=== PATIENT | female | born 1940 | race Caucasian/White ===

== ENCOUNTER → 2019-05-01 12:46 | Outpatient (CLI) | payer MEDICARE, SELFPAY ==
--- NOTE | 2019-05-01 13:08 | CA_ITS ---
APPROVED REPORT EXAM: Comprehensive 2D, Doppler, and color-flow Echocardiogram Shipping Point Inspector: Caterina Borrero CRT Ht: 5 ft 4 in Wt: 160lbs BSA: 1.78 BP: 110/70 mmHg Indications: Shortness of Breath, Hypertension/HDD, EDEMA, SMOKER 2D Dimensions LVOT 1.74 cm (M/F) 1.5-2.5 M-Mode Dimensions RVDd 2.00 cm (0.9-2.6) LVDd 3.85 cm (3.5-5.7) LVDs 3.10 cm (3.5-5.7) IVSd 1.56 cm (0.6-1.1) PWd 0.50 cm (0.6-1.1) EF (Teich) 40.70% FS 19.50% EDV (Teich) 63.90 mL ESV (Teich) 37.90 mL LV Diastology E/A Ratio 0.56 Mitral Valve MV A Velocity 126.00 (40-130 cm/s) Left Ventricle Left atrium is mildly enlarged, left ventricle is normal size, mild concentric left ventricular hypertrophy, visually estimated ejection fraction 55% with no regional wall motion abnormality. Grade 1 diastolic dysfunction seen with tissue Doppler evidence of raise left atrial pressure. Right Ventricle Right atrium and right ventricular normal size and contractility. Aortic Valve Aortic valve is minimally thickened and calcified, leaflet continue to display good mobility, there is no aortic stenosis, there is trace aortic insufficiency. Mitral Valve Mitral valve is grossly normal, there is mild mitral regurgitation. Tricuspid Valve Tricuspid valve is grossly normal, there is mild tricuspid regurgitation. Pulmonic Valve Pulmonic valve is poorly visualized. Great Vessels Aortic root is normal size. Pericardium No significant pericardial effusion noted. Conclusion 1. Mildly enlarged left atrium, normal left ventricular size, mild concentric left ventricular hypertrophy, visually estimated ejection fraction 55% with no regional wall motion abnormality, grade 1 diastolic dysfunction seen with tissue Doppler evidence of raise left atrial pressure. 2. Trace aortic, mild mitral and tricuspid regurgitation. 3. No significant pericardial effusion noted. Electronically signed by : Michel Bishop, 05/02/2019 06:40:31
== END ==
PROVIDERS: PCP Family Medicine; Visit Provider Family Medicine
DX: R06.02 Shortness of breath (principal); R60.0 Localized edema; J43.9 Emphysema, unspecified; I10 Essential (primary) hypertension
CPT/HCPCS: 93306

== ENCOUNTER 2022-01-14 14:54 | Emergency (ER) | payer MEDICARE, SELFPAY ==
[2022-01-14 15:29] VITALS: BP 169/70; PULSE 99; RESP 18; TEMP 36.8; O2SAT 94; BMI 27.4
--- NOTE | 2022-01-14 15:51 | CT_ITS ---
FINAL REPORT CLINICAL HISTORY: back pain, R leg radicular pain FINDINGS: Axial imaging of the lumbar spine was obtained without contrast. Sagittal and coronal reformatted images were also obtained and reviewed.This study was performed with techniques to keep radiation doses as low as reasonably achievable (ALARA). Individualized dose reduction techniques using automated exposure control or adjustment of mA and/or kV according to the patient's size were employed. There is no fracture. There is a left lateral subluxation of L2 in relation to L3 measuring 4 mm. There is multilevel degenerative disc disease with severe disc space narrowing at L2-3 and L5-S1. There is no evidence of significant central canal stenosis. L1-2: There is an annular disc bulge with facet arthropathy and vertebral osteophytes. There is a right foraminal disc protrusion with moderate right mild left neural foraminal narrowing. L2-3: There is an annular disc bulge with facet arthropathy and vertebral osteophytes. There is moderate right and severe left neural foraminal narrowing. There is moderate central canal stenosis with an AP diameter of the thecal sac of 5 mm. L3-4: There is an annular disc bulge with facet arthropathy and vertebral osteophytes. There is moderate bilateral neural foraminal narrowing. There is moderate central canal stenosis with an AP diameter of the thecal sac of 5 mm. L4-5: There is an annular disc bulge with facet arthropathy. There is moderate bilateral neural foraminal narrowing. L5-S1: There is an annular disc bulge with facet arthropathy and vertebral osteophytes. There is severe right and moderate left neural foraminal narrowing. IMPRESSION: No acute bony abnormality. Multilevel degenerative change with severe disc space narrowing at L2-3 and L5-S1. Moderate central canal stenosis at L2-3 and L3-4. 4 mm of left lateral subluxation of L2 in relation to L3. Reviewed, Interpreted and Dictated by Kevin Smith III, MD Transcribed by Zeynep Orellana Authenticated and [facility]
--- NOTE | 2022-01-14 15:52 | HMH.EDGENADL ---
Discharge Plan Disposition Patient Disposition: Home, Self-Care Condition: Good Prescriptions Prescriptions: New prednisone 20 mg tablet 20 mg PO BID Qty: 10 0RF hydrocodone-acetaminophen 5-325 mg tablet 1 tab PO Q6H PRN (Reason: pain) Qty: 7 0RF Referrals Follow up/Referrals: Isaias Prasad MD [Referring] - See instructions Activity Restrictions/Add. Instructions Additional Instructions/Restrictions: Prednisone as prescribed. [place] as needed for pain. It would be best to take this just at night to help with sleep and take plain Tylenol during the day to avoid drowsiness, dizziness, and risk of falls. Follow-up with your primary care provider, call to make appointment. Additional instructions for BACK PAIN: See your physician as soon as possible for further evaluation. Return immediately if back pain becomes intolerable, or if fever, numbness or weakness of your legs, loss of control of your bowels or bladder. Additional instructions for CONTROLLED SUBSTANCES: You have been prescribed a medication that is a controlled substance. Controlled substances include pain medications known as opiates and sedative nerve medications known as benzodiazepines. Tramadol, fioricet, and gabapentin are also controlled substances. Some common opiates include: Codeine (such as Tylenol #3) Hydrocodone (Vicodin, Lortab, Lorcet, [place]) Oxycodone (Percocet, Percodan, Oxycodone, Oxy IR) Some common benzodiazepines include: Diazepam (Valium) Lorazepam (Ativan) Alprazolam (Xanax) Clonazepam (Klonopin) Oxazepam (Serax) All of these controlled substances are highly addictive and frequently abused. Misuse can and frequently does lead to addiction as well as overdose and . Medication should be stored in a locked cabinet or other secure storage unit. Do not store the medication in a motor vehicle. Short term supplies, 3 days or less, are prescribed because of the highly addictive nature of the medication. Any of the controlled substance medication NOT taken should be disposed of properly and NOT SAVED. The recommended method of disposing of unused medications is: Place the medicines in a sealable plastic bag. If the medicine is a solid, crush it or add water to dissolve it. Add something undesirable (cat litter, coffee grounds, etc.) Dispose of sealed bag in household trash Do not flush or pour unused medicines down a sink or drain. Controlled substances should not be shared, given away or sold. Because of the addictive nature and frequent abuse, these medications are sometimes stolen. These medications should be kept in a safe place where they cannot be stolen. Do not keep them in your car or purse. Lost or stolen prescriptions for controlled substances WILL NOT BE REFILLED in this emergency department, regardless of whether a police report was filed. Clinical Impressions Clinical Impression: Acute back pain with sciatica, DDD (degenerative disc disease), lumbar, Spinal stenosis Instructions Patient Instructions: DI for Back Pain With Sciatica Discharge ED Provider: Hilton French General Adult HPI General Chief complaint: Back Pain/Injury Stated complaint: Severe back pain, no accident Time Seen by Provider: 01/14/22 15:42 Mode of Arrival: Wheelchair Source of Information: Patient Limitations: No Limitations Description of Symptoms (Recalled from ER Triage Doc. by RN): Patient reports severe lower back pain, right hip pain that radiates all the way dwon her leg into her ankle. Patient reports she has had the pain for a while but it has now become unbearable. History of Present Illness HPI narrative: History obtained from patient and her daughter. Patient complains of pain in her right lumbar area that radiates down her right leg all the way to the ankle. Is causing her difficulty in ambulating. She has had back pain chronically, but over the past week it has gotten worse and become
[2022-01-14 18:13] VITALS: BP 153/62; PULSE 89; RESP 18; TEMP 36.8; O2SAT 95
== END 2022-01-14 18:00 | disposition home or self-care (01) ==
PROVIDERS: Emergency Provider Emergency Medicine; PCP Nurse Practitioner Family
DX: M54.40 Lumbago with sciatica, unspecified side (principal); M51.36 Other intervertebral disc degeneration, lumbar region; Z88.0 Allergy status to penicillin; Z88.2 Allergy status to sulfonamides
CPT/HCPCS: 72131; 96372; 99284; J2405

== ENCOUNTER → 2022-06-09 12:37 | Outpatient (POV) | payer MEDICARE, SELFPAY ==
--- NOTE | 2022-06-09 13:04 | EXP.PAIN.OV ---
HPI Data of Consult Patient: new to practice Consult date: 06/09/22 Requesting Physician: Cyndy Natarajan APRN Primary Care Provider: Isaias Prasad MD Consult Narrative Reason for consult: Low back pain History of present illness: Ms. Garcia is a 82 year old female who presents today as a new patient. She is a referral from Dr. Prasad's office. Today she rates her pain a 10 out of 10. Patient states her pain is all in her low back, legs and hips. Patient states this is been going on for years however it has been more severe the last 6 to 8 months and progressively worsened over time. Patient denies any specific trauma or injury that initially led to her symptoms. She does describe this as a throbbing sensation with occasional sharp pains with certain activities such as going up the stairs or getting in and out of the vehicle. She states the pain is so severe that it makes her sick to her stomach. She does also state that it affects her ability to sleep at night due to her pain. She does state it interferes with her ability to perform activities of daily living such as cooking or cleaning or even ambulation. She does use a cane as an assistive device. She state her pain does go into both her legs however it does vary based on what she is doing. Patient has tried [id number] Tylenol and ibuprofen. She states she does take more Advil however she has a history of Crohn's disease and has to be very cautious with taking NSAIDs. Patient is also tried alternating between heat and ice and Biofreeze however this only provides temporary relief. Patient denies any history of recent physical therapy, back surgery or injections. Patient has been prescribed Thorofare 5 mg in the past by her primary care doctor however she does not currently take this medication. She states she has been given steroids in the past however she did not notice significant relief. Her Ortega is [phone]. Its been reviewed and appropriate. CC: Cyndy Natarajan APRN [facility] Disclaimer: The information contained in this section may have been updated after the patient was seen, as this information can be updated by other users. Social History Smoking Status: Current every day smoker alcohol intake: never current occupational status: retired Travel in the last 8 weeks: None Review of Systems Review of Systems Review of systems:: pertinent systems reviewed and negative unless documented below Review of systems (narrative): Review of Systems: General: No recent weight changes, no fever, no sleep disturbances Respiratory: No cough, no shortness of air, no recurring pulmonary infections Cardiovascular/peripheral vascular: No chest pain, no palpitations, no edema, no shortness of breath Gastrointestinal: No new onset incontinence, normal bowel movements reported Genitourinary: No new onset incontinence Musculoskeletal: Low back pain right leg pain bilateral hip pain Psychiatric: [Normal mood/affect] Neurological: [Denies weakness in extremities], [denies balance issues] Meds Home Medications and Allergies Home Medications Medication Instructions Recorded Confirmed Type hydrocodone 5 mg-acetaminophen 325 1 tab PO Q6H PRN pain #7 tabs 01/14/22 Rx mg tablet prednisone 20 mg tablet 20 mg PO BID #10 tabs 01/14/22 Rx New Prescriptions to Start Prescriptions: Allergies Allergy/AdvReac Type Severity Reaction Status Date / Time Penicillins AdvReac Verified 01/14/22 15:33 Sulfa (Sulfonamide AdvReac Verified 01/14/22 15:33 Antibiotics) Objective Narrative: Physical Exam: General: Alert and oriented x3, no acute distress, pleasant and cooperative Lungs: Respirations even and unlabored, symmetrical chest expansion Eyes: PERRL Musculoskeletal: Flexion and extension of lumbar [spine] somewhat guarded secondary to pain, [antalgic gait noted] extreme point tenderness along right SI and bilateral greater trochanteric bursa's/p
[2022-06-09 13:29] VITALS: BP 162/83; PULSE 113; RESP 20; O2SAT 97; BMI 26.4
== END | disposition home or self-care (01) ==
PROVIDERS: PCP Family Medicine; Visit Provider Nurse Practitioner Family
DX: M51.16 Intervertebral disc disorders with radiculopathy, lumbar region (principal); M47.26 Other spondylosis with radiculopathy, lumbar region; M48.00 Spinal stenosis, site unspecified
CPT/HCPCS: 99202; G0463

== ENCOUNTER 2022-06-22 12:35 | Day surgery (SDC) | payer MEDICARE, SELFPAY ==
[2022-06-22 13:01] VITALS: BP 149/77; PULSE 113; RESP 18; TEMP 36.7; O2SAT 93; BMI 27.4
--- NOTE | 2022-06-22 13:03 | P.PCN_ITS ---
Procedure Date: 06/22/22 Time: 13:00 Anesthesiologist:: Peyman Vizcarra CRNA Complications:: None Pre-procedure Diagnosis:: Bilateral sacroiliitis Post-procedure Diagnosis:: Same Indications for Procedure:: Very pleasant 82-year-old female comes our clinic today for bilateral sacroiliac joint injection. She has extreme point tenderness over the bilateral SI joints. Procedure Details:: Procedure: Bilateral sacroiliac joint injections under fluoroscopy Informed consent was obtained and the risks and benefits of the procedure were explained to the patient.~ The patient was taken to the procedure room and noninvasive monitors were placed including a noninvasive blood pressure cuff and pulse oximeter.~ The patient was placed prone on the procedure table. Both hips were cleansed using Betadine as a cleansing solution. C-arm fluoroscopy was used to view the right sacroiliac joint.~ The skin and subcutaneous tissues were anesthetized using lidocaine 1.5% and a 25-gauge needle.~ After this, a 22-gauge spinal needle was inserted under fluoroscopic guidance into the inferior aspect of the right sacroiliac joint.~ Omnipaque dye was injected and good spread was seen throughout the joint.~ After this, approximately 5 mL of bupivacaine, 0.25% and Depo-Medrol, 40 mg was incrementally injected into the right sacroiliac joint. We then moved to the left sacroiliac joint.~ The skin and subcutaneous tissues were anesthetized using lidocaine 1.5% and a 25-gauge needle.~ After this, a 22- gauge spinal needle was inserted under fluoroscopic guidance into the inferior aspect of the left sacroiliac joint.~ Omnipaque dye was injected and good spread was seen throughout the joint. After this, approximately 5 mL of bupivacaine, 0.25% and Depo-Medrol, 40 mg was incrementally injected into the left sacroiliac joint.~ The patient tolerated the procedure well with no complications. The patient was observed in the Pain Clinic and then was discharged home neurologically intact. Plan and Disposition:: Patient was discharged without incident.
[2022-06-22 13:08] VITALS: BP 150/55; PULSE 109; RESP 18; O2SAT 93
== END 2022-06-22 13:08 | disposition home or self-care (01) ==
PROVIDERS: PCP Family Medicine; Visit Provider Nurse Anesthetist, Certified Registered
DX: M46.1 Sacroiliitis, not elsewhere classified (principal)
CPT/HCPCS: 27096; G0260; J1040

== ENCOUNTER 2022-06-29 12:14 | Day surgery (SDC) | payer MEDICARE, SELFPAY ==
[2022-06-29 12:56] VITALS: BP 148/76; PULSE 106; RESP 18; TEMP 36.2; O2SAT 97; BMI 27.4
--- NOTE | 2022-06-29 12:59 | P.PCN_ITS ---
Procedure Date: 06/29/22 Time: 13:00 Anesthesiologist:: Peyman Vizcarra CRNA Complications:: None Pre-procedure Diagnosis:: Bilateral greater trochanteric bursitis Post-procedure Diagnosis:: Same Indications for Procedure:: Patient is a very pleasant 82-year-old female comes our clinic today for bilateral greater trochanteric bursa injections. She has extreme point tenderness over the bilateral trochanteric bursa areas. She complains of lateral hip pain bilaterally. Procedure Details:: Procedure: Bilateral trochanteric bursa joint injections under fluoroscopy Informed consent was obtained and the risks and benefits of the procedure were explained to the patient.~ The patient was taken to the procedure room and noninvasive monitors were placed including a noninvasive blood pressure cuff and pulse oximeter.~ The patient was placed prone on the procedure table. Both hips were cleansed using Betadine as a cleansing solution. C-arm fluoroscopy was used to view the right trochanteric bursa joint.~ The skin and subcutaneous tissues were anesthetized using lidocaine 1.5% and a 25-gauge needle.~ After this, a 22- gauge spinal needle was inserted under fluoroscopic guidance into the inferior aspect of the right trochanteric bursa.~ Omnipaque dye was injected and good spread was seen throughout the joint.~ After this, approximately 5 mL of bupivacaine, 0.25% and Depo-Medrol, 40 mg was incrementally injected into the right sacroiliac joint. We then moved to the left trochanteric bursa joint.~ The skin and subcutaneous tissues were anesthetized using lidocaine 1.5% and a 25-gauge needle.~ After this, a 22-gauge spinal needle was inserted under fluoroscopic guidance into the inferior aspect of the left trochanteric bursa joint.~ Omnipaque dye was injected and good spread was seen throughout the joint. After this, approximate ly 5 mL of bupivacaine, 0.25% and Depo-Medrol, 40 mg was incrementally injected into the left sacroiliac joint.~ The patient tolerated the procedure well with no complications. The patient was observed in the Pain Clinic and then was discharged home neurologically intact. Plan and Disposition:: Patient was discharged without incident.
[2022-06-29 13:02] VITALS: BP 159/69; PULSE 104; RESP 18; O2SAT 97
[2022-06-29 13:03] VITALS: BP 159/69; PULSE 104; RESP 18; O2SAT 97
[2022-06-29 13:05] VITALS: BP 135/73; PULSE 105; RESP 18; O2SAT 97
== END 2022-06-29 13:05 | disposition home or self-care (01) ==
PROVIDERS: PCP Family Medicine; Visit Provider Nurse Anesthetist, Certified Registered
DX: M70.61 Trochanteric bursitis, right hip (principal); M70.62 Trochanteric bursitis, left hip
CPT/HCPCS: 20610; 77002; J1040

== ENCOUNTER 2022-07-14 07:10 | Observation (INO) | payer MEDICARE, SELFPAY ==
[2022-07-14] VITALS (12 sets, daily range): BP systolic 110–145; BP diastolic 54–64; PULSE 66–87; RESP 16–19; TEMP 36.6–37; O2SAT 88–98; BMI 32.7; BMI 28.0
--- NOTE | 2022-07-14 07:15 | XR_ITS ---
FINAL REPORT CLINICAL HISTORY: soa COMPARISON: 12/03/2016 FINDINGS: SINGLE-VIEW CHEST The heart size is normal. The mediastinum is normal. There are chronic changes at the bases. The lungs are otherwise clear. There is no pneumothorax. IMPRESSION: No acute cardiopulmonary process. Reviewed, Interpreted and Dictated by Joshua Swan MD Transcribed by Myah Koo Authenticated and [facility]
--- NOTE | 2022-07-14 07:15 | XR_ITS ---
FINAL REPORT CLINICAL HISTORY: fall FINDINGS: Right femur Two views were obtained. There is no acute fracture or dislocation. The joint spaces appear normal. No soft tissue abnormality is identified. IMPRESSION: No acute process. Reviewed, Interpreted and Dictated by Joshua Swan MD Transcribed by Myah Koo Authenticated and [facility]
--- NOTE | 2022-07-14 07:15 | CT_ITS ---
FINAL REPORT TECHNIQUE: Axial images of the pelvis was performed by computed tomography. Sagittal and coronal reformatted images were obtained and reviewed. This study was performed with techniques to keep radiation doses as low as reasonably achievable (ALARA). Individualized dose reduction techniques using automated exposure control or adjustment of mA and/or kV according to the patient's size were employed. CLINICAL HISTORY: fall, R posterior pelvis pain FINDINGS: There is dense vascular calcification of the abdominal aorta and common iliac arteries. There are advanced changes of degenerative disc disease at L5-S1 with mild spinal and bilateral neural foraminal narrowing. There is inflammation and edema along the anterior and lateral inferior pelvic wall best seen on axial images 58-72 of series 4. Findings are probably related to a hematoma. There are fractures involving the lateral aspect of the right superior pubic ramus and mid right inferior pubic ramus. There is also comminuted fracture of the left symphysis pubis. IMPRESSION: Comminuted fracture of the left symphysis pubis with moderate stranding along the anterior and lateral inferior pelvic wall, probably related to a hematoma. Fractures of the right superior and inferior pubic rami. Reviewed, Interpreted and Dictated by Joshua Swan MD Transcribed by Myah Koo Authenticated and . [facility]
--- NOTE | 2022-07-14 07:15 | XR_ITS ---
FINAL REPORT CLINICAL HISTORY: fall FINDINGS: Right hip Three views were obtained. There are nondisplaced fractures of the right superior and inferior pubic rami. The femoral head demonstrates a normal smooth contour. The joint spaces appear normal. No soft tissue abnormality is identified. IMPRESSION: Nondisplaced fractures of the superior and inferior pubic rami. Reviewed, Interpreted and Dictated by Joshua Swan MD Transcribed by Myah Koo Authenticated and [facility]
--- NOTE | 2022-07-14 07:20 | HMH.EDGENADL ---
Discharge Plan Disposition Patient Disposition: Still a Patient Prescriptions Prescriptions: No Action losartan-hydrochlorothiazide 100-25 mg tablet 1 tab PO DAILY piroxicam 10 mg capsule 10 mg PO DAILY tizanidine [Zanaflex] 4 mg tablet 4 mg PO HS Referrals Follow up/Referrals: Isaias Prasad MD [Primary Care Provider] - See instructions Clinical Impressions Clinical Impression: Closed fracture of pubic ramus Discharge ED Provider: Glynn Cheek General Adult HPI <Glynn Cheek MD - Last Filed: 07/14/22 07:42> General Chief complaint: Fall Stated complaint: Fall/Right hip pain Time Seen by Provider: 07/14/22 07:20 Mode of Arrival: EMS Source of Information: Patient and EMS Limitations: No Limitations Description of Symptoms (Recalled from ER Triage Doc. by RN): 82 yo female presents after falling last night at approximately 2100. Fall was unwitnessed and she denies LOC. Pt denies anticoag/antiplatelets. Patient with right side hip pain. According to EMS family reports immediately helping her up and then her pain became too much. History of Present Illness HPI narrative: Patient is a 82-year-old female with past medical history of hypertension, Crohn's, degenerative disc disease, sciatica who presents emergency department for evaluation of traumatic injuries sustained in a fall. Patient fell at approximately 2100 last night on her right side, no LOC, did not strike her head or neck. She originally complained of hip pain and was helped up to the couch by her son however due to worsening throughout the night she presents here for continued evaluation. In route patient received 25 mcg of fentanyl and 4 mg of Zofran. Placed on 2 L nasal cannula due to saturation in the mid 80s. Patient states she has had a cough and upper respiratory congestion recently. Does not have a history of COPD or take inhalers at home. No other acute complaints at this time. Denies blood thinners. Related Data Home Medications Medication Instructions Recorded Confirmed losartan 100 1 tab PO DAILY BLOOD PRESSURE 06/09/22 06/29/22 mg-hydrochlorothiazide 25 mg tablet piroxicam 10 mg capsule 10 mg PO DAILY Pain 06/09/22 06/29/22 tizanidine 4 mg tablet (Zanaflex) 4 mg PO HS muscle spasms 06/22/22 06/29/22 Allergies Allergy/AdvReac Type Severity Reaction Status Date / Time Penicillins AdvReac Verified 06/29/22 12:57 Sulfa (Sulfonamide AdvReac Verified 06/29/22 12:57 Antibiotics) [facility] <Glynn Cheek MD - Last Filed: 07/14/22 07:42> [facility] Disclaimer: The information contained in this section may have been updated after the patient was seen, as this information can be updated by other users. Medical History (Updated 07/14/22 @ 09:16 by Nickolas Acevedo MD) Degenerative disc disease HTN (hypertension) Family History Other No significant family history Social History Smoking Status: Unknown if ever smoked alcohol intake: never current occupational status: retired Travel in the last 8 weeks: None <Glynn Cheek MD - Last Filed: 07/14/22 07:42> ROS Obtained: Yes Systems reviewed as appropriate & no additional complaints except as documented Physical Exam <Glynn Cheek MD - Last Filed: 07/14/22 07:42> General General appearance: alert and in no apparent distress Head Head exam: atraumatic and normocephalic Eye Eye exam: Present PERRL and EOMI ENT ENT exam: Present mucous membranes moist Neck Neck exam: Present normal inspection; Absent full ROM or tenderness Chest Chest inspection: Present normal inspection and symmetric chest wall rise Respiratory Respiratory exam: Present wheezes and prolonged expiratory phase; Absent respiratory distress Cardiovascular Cardiovascular exam: Present regular rate and normal rhythm Abdominal Exam Abdominal exam
--- NOTE | 2022-07-14 07:21 | PC.NURSE ---
Respiratory aware of DUO-NEB order
--- NOTE | 2022-07-14 07:34 | PC.NURSE ---
Family at BS
--- NOTE | 2022-07-14 07:38 | ECG_ITS ---
APPROVED REPORT Exam: Resting ECG HR:92 bpm ECG Measurements Heart Rate 92 AXES IN 161 P 82 QRSd 81 QRS 73 QT 374 T 70 QTc 423 Conclusion SINUS RHYTHM WITH FREQUENT ECTOPIC PREMATURE COMPLEXES ABNORMAL RHYTHM ECG UNCONFIRMED REPORT Electronically signed by : Isaias Akins MD 07/14/2022 21:20:01
[2022-07-14 07:40] LABS: Basophils # 0.1 K/mm3 (0-0.2); Basophils % 0.5 % (0.1-2.0); Eosinophils # 0.1 K/mm3 (0.0-0.4); Eosinophils % 1.1 % (0.1-12.0); Hematocrit 47.5 % (37.0-47.0); Hemoglobin 15.5 g/dL (12.2-16.2); Lymphocytes # 1.1 K/mm3 (0.7-4.5); Lymphocytes % 8.5 % (10-50); Mean Corpuscular HGB Conc 32.6 g/dL (31.8-35.4); Mean Corpuscular Volume 95.1 fl (81-99); Mean Platelet Volume 8.6 fl (7.4-10.4); Monocytes # 0.6 K/mm3 (0.1-1.0); Monocytes % 4.8 % (1.7-9.3); Neutrophils # 10.8 K/mm3 (1.8-7.8); Neutrophils % 85.1 % (37.0-80.0); Platelet Count 155 K/mm3 (142-424); Red Blood Count 4.99 M/mm3 (4.20-5.40); Red Cell Distribution Width 13.5 % (11.5-17.5); White Blood Count 12.7 K/mm3 (4.8-10.8)
[2022-07-14 07:44] LABS: MANUAL DIFFERENTIAL MANUAL DIFFERENTIAL (MANUAL DIFF)
[2022-07-14 07:45] LABS: Chloride 82 mmol/L (98-107); Potassium 3.3 mmoL/L (3.5-5.1); Sodium 129 mmol/L (136-145)
[2022-07-14 07:48] LABS: Blood Urea Nitrogen 25 mg/dl (7-17); Creatinine Clearance Estimated 51 mL/min (50-200); Estimated Glomerular Filt Rate 48 ml/min (>60); GFR (African American) 58 ML/MIN (>60); Lymphocytes % 13 % (10-50); Monocytes % 5 % (2-9); Neutrophils % 82 % (42-76); Platelet Estimate Slight Decrease; RBC Morphology Normal; Total Cells Counted 100
[2022-07-14 07:49] LABS: Anion Gap 14.3 mEq/L (5-15); Calcium 8.6 mg/dl (8.4-10.2); Carbon Dioxide 36 mmol/L (22.0-30.0); Glucose 142 mg/dl (74-100)
[2022-07-14 07:56] LABS: Coronavirus 19, PCR Not Detected (NotDetected); Influenza A, PCR Not Detected (NotDetected); Influenza B, PCR Not Detected (NotDetected)
--- NOTE | 2022-07-14 08:00 | PC.NURSE ---
[place] at bedside
--- NOTE | 2022-07-14 09:08 | PC.NURSE ---
Dr. Acevedo speaking with Dr. Natarajan, Orthopaedics.
--- NOTE | 2022-07-14 09:50 | PC.NURSE ---
call to care management about bed.
--- NOTE | 2022-07-14 10:06 | HMH.PHAINT1 ---
Pharmacy Intervention Comments: MEDICATION RECONCILIATION COMPLETED ON PATIENT USING EXTERNAL FILL HISTORY FROM PHARMACY. -HALEY LIM, KATD
--- NOTE | 2022-07-14 10:09 | PC.NURSE ---
Rounded on patient; family reports she seems to be very uncomfortable at this time. reported to Dr. Acevedo that patient is requesting something for pain. EMILIE Yates aware that order was put in
--- NOTE | 2022-07-14 10:15 | PC.NURSE ---
report called to second floor. will administer pain medication then transport pts to second floor.
--- NOTE | 2022-07-14 10:32 | PC.NURSE ---
arrived to room on stretcher from ED
--- NOTE | 2022-07-14 11:48 | SW/DCPLANNER ---
Addendum entered by Ana Laura Orozco 07/16/22 08:49: This patient has been approved via insurance for [facility] SNF level of care today. Addendum entered by Ana Laura Orozco 07/15/22 07:35: This patient has been accepted to [facility] pending precert. I have updated patient and family. Cyndy martinez/ [facility] is aware that patient is medically stable for discharge. Original Note: Patient currently resides at home alone. PT/OT will evaluate patient today. Patient/family has stated that if SNF level of care is needed at time of discharge they prefer [facility]. Per MD patient is medically stable for discharge once PT/OT is completed and placement is established.
--- NOTE | 2022-07-14 12:09 | EXP.HP ---
History of Present Illness *Admission Date: 07/14/22 *Reason for visit:: Fall *History of present illness: Ms. Alvares is a pleasant 82-year-old female with history of tobacco dependence, chronic back pain, spinal stenosis, and hypertension. She presented to the ER today after falling at home. States she was at home and fell onto her right side. Has had pain in her pelvis since. She denies any chest pain, nausea, vomiting, confusion, hitting her head. Work-up in the ER with labs and imaging. She was found to have significant tenderness over posterior hemipelvis. CT of the pelvis and plain films show concern for pubic ramus fracture. Orthopedics was consulted, recommended nonoperative management. Patient is unable to ambulate in the ER. Medicine consulted for admission, PT/OT eval, and possible placement. On arrival to the floor. Patient is stable on 2 L nasal cannula oxygen (does not wear oxygen at home). States her pelvis hurts when she moves but as long as she still is okay. Has significant family with her who helps supplement history. Patient lives by herself, strong concern about her safety going home. Otherwise at baseline level of health. Has seen pain management previously for back injections, temporary benefit but no long-term improvement. [facility] Disclaimer: The information contained in this section may have been updated after the patient was seen, as this information can be updated by other users. Medical History (Updated 07/14/22 @ 16:59 by Isauro Maier MD) Degenerative disc disease HTN (hypertension) Family History No significant family history Social History Smoking Status: Unknown if ever smoked alcohol intake: never current occupational status: retired Travel in the last 8 weeks: None Review of Systems Review of Systems Review of systems (narrative): 14 point review of systems performed, pertinent positives and negatives as per HPI Meds Home Medications and Allergies Home Medications Medication Instructions Recorded Confirmed Type losartan 100 1 tab PO DAILY Hypertension 06/09/22 07/14/22 History mg-hydrochlorothiazide 25 mg tablet piroxicam 10 mg capsule 10 mg PO DAILY Pain 06/09/22 07/14/22 History tizanidine 4 mg tablet (Zanaflex) 4 mg PO HS muscle spasms 06/22/22 07/14/22 History New Prescriptions to Start Prescriptions: Allergies Allergy/AdvReac Type Severity Reaction Status Date / Time Penicillins AdvReac Verified 06/29/22 12:57 Sulfa (Sulfonamide AdvReac Verified 06/29/22 12:57 Antibiotics) Exam Data for Last 24 hours Vital signs and Labs for Last 24 Hours: Temp Pulse Resp BP Pulse Ox 97.9 F 84 16 120/59 L 88 L 07/14/22 11:07/14/22 11:07/14/22 11:07/14/22 11:07/14/22 10:41 Laboratory Results - last 24 hr 07/14/22 07:28: WBC 12.7 H, RBC 4.99, Hgb 15.5, Hct 47.5 H, MCV 95.1, MCH 31.0, MCHC 32.6, RDW 13.5, Plt Count 155, MPV 8.6, Neut % (Auto) 85.1 H, Lymph % (Auto) 8.5 L, [place] % (Auto) 4.8, Eos % (Auto) 1.1, Baso % (Auto) 0.5, Neut # (Auto) 10.8 H, Lymph # (Auto) 1.1, [place] # (Auto) 0.6, Eos # (Auto) 0.1, Baso # (Auto) 0.1, Total Counted 100, Neutrophils % (Manual) 82 H, Lymphocytes % (Manual) 13, Monocytes % (Manual) 5, Platelet Estimate Slight decrease, RBC Morphology Normal 07/14/22 07:28: Sodium 129 L, Potassium 3.3 L, Chloride 82 L, Carbon Dioxide 36 H, Anion Gap 14.3, BUN 25 H, Creatinine 1.10 H, Estimated Creat Clear 51, Estimated GFR 48 L, Est GFR ( Amer) 58 L, Glucose 142 H, Calcium 8.6 07/14/22 07:40: SARS-CoV-2 (PCR) Not detected, Influenza A Untype (PCR) Not detected, Influenza Type B (PCR) Not detected I & O for Last 24 hours: Intake & Output 07/11/22 07/12/22 07/13/22 07/14/22 23:59 23:59 23:59 23:59 Output Total 0 / 0 Balance 0 / 0 Weight 74.191 kg Constitutional Constitutional: no
--- NOTE | 2022-07-14 13:12 | EXP.ORTH.CON ---
History of Present Illness *Admission Date: 07/14/22 *Reason for visit:: Status post fall *History of present illness: Patient is a 82-year-old female with past medical history of hypertension, Crohn's, degenerative disc disease, sciatica who presents emergency department for evaluation of traumatic injuries sustained in a fall. Patient fell at approximately 2100 last night on her right side, no LOC, did not strike her head or neck. She originally complained of hip pain and was helped up to the couch by her son however due to worsening throughout the night she presents here for continued evaluation. [facility] Disclaimer: The information contained in this section may have been updated after the patient was seen, as this information can be updated by other users. Medical History Degenerative disc disease HTN (hypertension) Family History Other No significant family history Social History Smoking Status: Unknown if ever smoked alcohol intake: never current occupational status: retired Travel in the last 8 weeks: None Review of Systems Constitutional Constitutional: Reports system reviewed and no additional complaints, except as documented *Cardiovascular Cardiovascular: Denies chest pain with activity and Denies dyspnea on exertion *Respiratory Respiratory: Denies dyspnea on exertion *Genitourinary Genitourinary: Reports system reviewed and no additional complaints, except as documented *Musculoskeletal Musculoskeletal: Reports arthralgias *Neurologic Neurologic: Reports system reviewed and no additional complaints, except as documented Meds Home Medications and Allergies Home Medications Medication Instructions Recorded Confirmed Type losartan 100 1 tab PO DAILY Hypertension 06/09/22 07/14/22 History mg-hydrochlorothiazide 25 mg tablet piroxicam 10 mg capsule 10 mg PO DAILY Pain 06/09/22 07/14/22 History tizanidine 4 mg tablet (Zanaflex) 4 mg PO HS muscle spasms 06/22/22 07/14/22 History New Prescriptions to Start Prescriptions: Allergies Allergy/AdvReac Type Severity Reaction Status Date / Time Penicillins AdvReac Verified 06/29/22 12:57 Sulfa (Sulfonamide AdvReac Verified 06/29/22 12:57 Antibiotics) Ortho Exam (Inpt) Vital signs and Labs for Last 24 Hours: Temp Pulse Resp BP Pulse Ox 97.9 F 84 16 120/59 L 88 L 07/14/22 11:23 07/14/22 11:23 07/14/22 11:07/14/22 11:07/14/22 10:41 Laboratory Results - last 24 hr 07/14/22 07:28: WBC 12.7 H, RBC 4.99, Hgb 15.5, Hct 47.5 H, MCV 95.1, MCH 31.0, MCHC 32.6, RDW 13.5, Plt Count 155, MPV 8.6, Neut % (Auto) 85.1 H, Lymph % (Auto) 8.5 L, [place] % (Auto) 4.8, Eos % (Auto) 1.1, Baso % (Auto) 0.5, Neut # (Auto) 10.8 H, Lymph # (Auto) 1.1, [place] # (Auto) 0.6, Eos # (Auto) 0.1, Baso # (Auto) 0.1, Total Counted 100, Neutrophils % (Manual) 82 H, Lymphocytes % (Manual) 13, Monocytes % (Manual) 5, Platelet Estimate Slight decrease, RBC Morphology Normal 07/14/22 07:28: Sodium 129 L, Potassium 3.3 L, Chloride 82 L, Carbon Dioxide 36 H, Anion Gap 14.3, BUN 25 H, Creatinine 1.10 H, Estimated Creat Clear 51, Estimated GFR 48 L, Est GFR ( Amer) 58 L, Glucose 142 H, Calcium 8.6 07/14/22 07:40: SARS-CoV-2 (PCR) Not detected, Influenza A Untype (PCR) Not detected, Influenza Type B (PCR) Not detected I & O for Labs for Last 24 Hours: Intake & Output 07/11/22 07/12/22 07/13/22 07/14/22 23:59 23:59 23:59 23:59 Output Total 0 / 0 Balance 0 / 0 Weight 163 lb 9 oz Findings:: No groin pain with internal/external rotation of bilateral legs. Subjectively tender in the groin and pelvic area with movement. Comment:: I reviewed pelvis CT and agree with radiology findings as below Comminuted fracture of the left symphysis pubis with moderate stranding along the anter
--- NOTE | 2022-07-14 14:48 | HMH.PTEV ---
Physical Therapy Evaluation Rehab PT IP Evaluation Start: 07/14/22 09:24 Freq: ONCE Status: Active Protocol: Document 07/14/22 13:00 PHORNE (Rec: 07/14/22 14:48 PHORNE [id number]) Subjective/History History History 82 yowf adm to [facility] after ground level fall at home onto R side with resulting R sup/ inf pubic rami fxs and L symphisis pubis fx. She has hx of HTN, crohns disease, DDD. She reports she lives alone, 1 -2 steps to enter the home and she is generally independent with all ADL. Subjective Subjective Pt reports pain in the R post hip and L groin area with WB. R hip is worse. Rehab PT IP Eval Objective Appearance Patient Behavior Appropriate Patient Orientation Person,Place,Time Difficulty following instructions none Speech Pattern Clear Ambulation Patient Able to Ambulate Yes Ambulation Observation IP General Gait Pattern Observation Antalgic Gait,Decrease Stride Lngth (R),Decrease Stride Lngth (L) Ambulation Distance (feet) 3 Ambulation Assistive Device Rolling Walker Ambulation Ability Minimal x 1 (25% assist) Balance Ability to Arise Able, uses arms to help Sitting Balance Steady, safe Standing Balance Steady, wide stance Dynamic Sitting Balance Ability Good Dynamic Standing Balance Ability Fair Transfers Bed Transfer Ability Contact Guard/Hand Hold Chair Transfer Ability Minimal x 1 (25% assist) Sit to Stand Bed Transfer Ability Minimal x 1 (25% assist) Sit to Stand Chair Transfer Ability Minimal x 1 (25% assist) ROM All Extremities PT ROM Status WFL MMT All Extremities PT MMT WFL Abnormal MMT Grade grossly 3/5 Rehab PT IP prob,goals,plan Problems Date of Evaluation: 07/14/22 PT IP Problems Bed Mobility,Transfers,Gait Rehab Potential Rehab Potential Good Equipment Needs Assistive Devices Rolling / Wheeled Walker Plan PT Intervention Plan Bed Mobility,Transfers,Gait, Therapeutic Exercise PT Plan Frequency BID Duration LOS Discharge Goals Bed Transfer Ability Supervision/Stand by Sit to Stand Chair Transfer Ability Contact Guard/Hand Hold Ambulation Assistive Device Rolling Walker Ambulation Distance (feet) 2
--- NOTE | 2022-07-14 16:52 | HMH.OTEV ---
OT Inpatient Evaluation Rehab OT IP Evaluation Start: 07/14/22 09:24 Freq: ONCE Status: Active Protocol: Document 07/14/22 16:46 SU (Rec: 07/14/22 16:52 SU [id number]) Rehab OT IP Assessment Subjective History Ms. Alvares is a pleasant 82- year-old female with history of tobacco dependence, chronic back pain, spinal stenosis, and hypertension. She presented to the ER today after falling at home. States she was at home and fell onto her right side. Has had pain in her pelvis since. She denies any chest pain, nausea, vomiting, confusion, hitting her head. Work-up in the ER with labs and imaging. She was found to have significant tenderness over posterior hemipelvis. CT of the pelvis and plain films show concern for pubic ramus fracture. Orthopedics was consulted, recommended nonoperative management. Patient is unable to ambulate in the ER. Medicine consulted for admission, PT/OT eval, and possible placement. On arrival to the floor. Patient is stable on 2 L nasal cannula oxygen (does not wear oxygen at home). States her pelvis hurts when she moves but as long as she still is okay. Has significant family with her who helps supplement history. Patient lives by herself, strong concern about her safety going home. Otherwise at baseline level of health. Has seen pain management previously for back injections , temporary benefit but no long-term improvement. Patient lives alone in 1 story home with 1-2 ANDREA. Patient is [place] and was independent with
--- NOTE | 2022-07-14 16:53 | PC.NURSE ---
PT IS RESTING IN BED. TOLERATED SITTING UP IN THE SHIFT. PT WAS A 1 ASSIST TO GET OOB WITH NURSING STAFF AND PHYSICAL THERAPY. VOIDING PER BSC. MEDICATED PER MAR FOR PAIN AND NAUSEA. LUNG SOUNDS CLEAR. ABDOMEN SOFT/NON TENDER WITH ACTIVE BOWEL SOUNDS. NO SWELLING NOTED TO BLE. WILL CONTINUE TO MONITOR.
--- NOTE | 2022-07-15 03:57 | PC.NURSE ---
A&OX4. TOLERATING 2LNC WELL, WILL WEAN TOLERATED. PT C/O PAIN X1 AT BEGINNING OF SHIFT, TX PER MAY. PT HAS SINCE SLEPT, NO OTHER NEEDS OR C/O NOTED. X1 ASSIST WITH WALKER TO BEDSIDE COMMODE. VSS.
[2022-07-15 04:00] VITALS: BP 112/64; PULSE 85; RESP 18; TEMP 36.9; O2SAT 98; BMI 28.3
[2022-07-15 06:15] VITALS: O2SAT 84
[2022-07-15 06:27] LABS: Chloride 83 mmol/L (98-107); Potassium 3.9 mmoL/L (3.5-5.1); Sodium 128 mmol/L (136-145)
[2022-07-15 06:29] LABS: Blood Urea Nitrogen 30 mg/dl (7-17); Creatinine Clearance Estimated 43 mL/min (50-200); Estimated Glomerular Filt Rate 43 ml/min (>60); GFR (African American) 52 ML/MIN (>60)
[2022-07-15 06:30] LABS: Alanine Aminotransferase 22 U/L (12-78); Albumin Level 3.2 g/dl (3.5-5.0); Albumin/Globulin Ratio 1.3 (1.1-1.8); Alkaline Phosphatase 81 U/L (38-126); Anion Gap 11.9 mEq/L (5-15); Aspartate Amino Transferase 28 U/L (14-36); Bilirubin,Total 1.5 mg/dl (0.2-1.3); Calcium 8.2 mg/dl (8.4-10.2); Carbon Dioxide 37 mmol/L (22.0-30.0); Globulin 2.5 g/dL (1.3-3.2); Glucose 111 mg/dl (74-100); Magnesium 1.5 mg/dl (1.6-2.3); Total Protein,Serum 5.7 g/dl (6.3-8.2)
[2022-07-15 06:55] LABS: Eosinophils # 0.2 K/mm3 (0.0-0.4); Lymphocytes # 0.8 K/mm3 (0.7-4.5); Red Cell Distribution Width 13.3 % (11.5-17.5)
[2022-07-15 06:59] LABS: Basophils % 0.2 % (0.1-2.0); Hematocrit 39.8 % (37.0-47.0); Hemoglobin 13.4 g/dL (12.2-16.2); Lymphocytes % 9.2 % (10-50); Mean Corpuscular HGB Conc 33.7 g/dL (31.8-35.4); Mean Corpuscular Hemoglobin 32.1 pg (27.0-31.2); Mean Corpuscular Volume 95.1 fl (81-99); Mean Platelet Volume 8.7 fl (7.4-10.4); Monocytes # 0.5 K/mm3 (0.1-1.0); Monocytes % 6.1 % (1.7-9.3); Neutrophils # 7.1 K/mm3 (1.8-7.8); Neutrophils % 82.6 % (37.0-80.0); Platelet Count 106 K/mm3 (142-424); Red Blood Count 4.19 M/mm3 (4.20-5.40); White Blood Count 8.6 K/mm3 (4.8-10.8)
[2022-07-15 08:00] VITALS: BP 119/59; PULSE 81; RESP 17; TEMP 36.9; O2SAT 98
[2022-07-15 13:46] VITALS: BMI 28.3
[2022-07-15 15:56] VITALS: BP 126/59; PULSE 87; RESP 18; TEMP 36.9; O2SAT 95
--- NOTE | 2022-07-15 17:00 | PC.NURSE ---
PT IS RESTING IN BED. TOLERATED SITTING UP IN THE CHAIR FOR A FEW HOURS THIS SHIFT. AMBULATED IN THE ROOM WITH PHYSICAL THERAPY. ASSIST X1 TO GET UP TO THE BSC. BRUISING NOTED THE LOWER BACK (FAMILY AND PATIENT STATED BRUISING CAME FROM HEATING PAD). LUNG SOUNDS DIMINISHED WITH SCATTERED WHEEZES. O2 SATURATION 90-95% ON 2 L NC. WILL CONTINUE TO MONITOR.
--- NOTE | 2022-07-15 19:25 | EXP.ACUTE.PN ---
Subjective *Date: 07/15/22 *Time: 19:25 Interval history: No acute events overnight. This morning however patient has had some mild nausea. Treated with Zofran. Denies any chest pain or shortness of breath. Still on 2 L nasal cannula oxygen. Afebrile. Blood pressure stable. Requiring assistance to get out of bed, significant pain with ambulation. Pain in her pelvis. Family at bedside on rounds Medical Exam Vital signs and Labs for Last 24 Hours: Vital Signs Temp Pulse Resp BP Pulse Ox 07/15/22 15:56 98.5 F 87 18 126/59 L 95 07/15/22 08:00 98.5 F 81 17 119/59 L 98 07/15/22 06:15 84 L 07/15/22 04:00 98.4 F 85 18 112/64 98 07/14/22 20:00 98.6 F 86 16 145/58 H 98 Intake and Output 07/15/22 07/15/22 07/15/22 07:59 15:59 23:59 Intake Total 360 / 650 290 / 650 Output Total 0 / 200 0 / 200 200 / 200 Balance 0 / 450 360 / 450 90 / 450 Intake: Intake, Oral Amount 360 / 600 240 / 600 Intake, Total IV Amount 50 / 50 Magnesium Sulfate in Water 2 gm 50 / 50 In 50 ml @ 50 mls/hr IV ONCE ONE Rx#:[id number] Output: Output, Urine Amount 0 / 200 0 / 200 200 / 200 Other: Number of Voids 1 Number of Unmeasured Voids 1 1 Weight 75.387 kg 75.38 kg Patient Weight 07/15/22 23:59 Weight 75.38 kg Laboratory Results - last 24 hr 07/15/22 05:54: WBC 8.6 D, RBC 4.19 L, Hgb 13.4 D, Hct 39.8, MCV 95.1, MCH 32.1 H, MCHC 33.7, RDW 13.3, Plt Count 106 L D, MPV 8.7, Neut % (Auto) 82.6 H, Lymph % (Auto) 9.2 L, [place] % (Auto) 6.1, Eos % (Auto) 2.0, Baso % (Auto) 0.2, Neut # (Auto) 7.1, Lymph # (Auto) 0.8, [place] # (Auto) 0.5, Eos # (Auto) 0.2, Baso # (Auto) 0.0 07/15/22 05:54: Sodium 128 L, Potassium 3.9, Chloride 83 L, Carbon Dioxide 37 H, Anion Gap 11.9, BUN 30 H, Creatinine 1.20 H, Estimated Creat Clear 43, Estimated GFR 43 L, Est GFR ( Amer) 52 L, Glucose 111 H D, Calcium 8.2 L, Magnesium 1.5 L, Total Bilirubin 1.5 H, AST 28, ALT 22, Alkaline Phosphatase 81, Total Protein 5.7 L, Albumin 3.2 L, Globulin 2.5, Albumin/Globulin Ratio 1.3 I & O for Labs for Last 24 Hours: Intake & Output 07/12/22 07/13/22 07/14/22 07/15/22 23:59 23:59 23:59 23:59 Intake Total 360 / 360 650 / 650 Output Total 0 / 0 200 / 200 Balance 360 / 360 450 / 450 Weight 74.191 kg 75.38 kg Constitutional: Present no acute distress, average body habitus and chronically ill appearing Head: Present atraumatic and normocephalic Respiratory: Present rhonchi and normal respiratory effort; Absent wheezes or crackles Cardiac: Present Reg Rate and Rhythm GI: Present soft and normal bowel sounds; Absent distention or tenderness Extremities: Present normal inspection and full ROM Skin: Present intact; Absent erythema Neuro: Present Grossly Intact, alert, awake, oriented x 3 and moves all extremities Assessment and Plan *Assessment and plan (1) Insufficiency fracture of pelvis: Status: Acute Category: Medical Code(s): M84.454A - Pathological fracture, pelvis, initial encounter for fracture (2) Hypoxia: Status: Acute Category: Medical Code(s): R09.02 - Hypoxemia (3) Spinal stenosis: Status: Chronic Category: Medical Code(s): M48.00 - Spinal stenosis, site unspecified (4) Tobacco use disorder: Status: Chronic Category: Medical Code(s): F17.200 - Nicotine dependence, unspecified, uncomplicated (5) HTN (hypertension): Status: Chronic Category: Medical Code(s): I10 - Essential (primary) hypertension Plan 82-year-old female with tobacco use disorder, hypertension, spinal stenosis. Presented after falling at home. Found to have pubic ramus fracture. ER consulted medicine for admission. Discussed need for PT eval, placement, inability of patient to walk and need for pain control. Medicine decided to admit for further management and placement. Patient not safe to discharge home. Admitte
[2022-07-15 20:00] VITALS: BP 132/57; PULSE 79; RESP 20; TEMP 36.8; O2SAT 92
[2022-07-16 04:00] VITALS: BP 141/68; PULSE 86; RESP 16; TEMP 37.1; O2SAT 98; BMI 27.6
--- NOTE | 2022-07-16 04:44 | PC.NURSE ---
A&OX4. TOLERATING 2LNC WELL. PT HAS HAD NO C/O PAIN THUS FAR THIS SHIFT. UP WITH STANDBY ASSIST TO BEDSIDE COMMODE. TOLERATING WELL. HAS BEEN AWAKE MOST OF NIGHT. NO NEEDS NOTED THUS FAR, VSS.
--- NOTE | 2022-07-16 05:13 | PC.NURSE ---
PT C/O NAUSEA, TX PER MAY.
[2022-07-16 06:08] VITALS: O2SAT 91
[2022-07-16 07:10] LABS: Anion Gap 4.5 mEq/L (5-15); Blood Urea Nitrogen 29 mg/dl (7-17); Calcium 8.3 mg/dl (8.4-10.2); Carbon Dioxide 37 mmol/L (22.0-30.0); Chloride 88 mmol/L (98-107); Creatinine Clearance Estimated 42 mL/min (50-200); Estimated Glomerular Filt Rate 43 ml/min (>60); GFR (African American) 52 ML/MIN (>60); Glucose 100 mg/dl (74-100); Potassium 3.5 mmoL/L (3.5-5.1); Sodium 126 mmol/L (136-145)
[2022-07-16 07:54] VITALS: BP 128/50; PULSE 68; RESP 16; O2SAT 96
[2022-07-16 08:00] VITALS: BP 123/63; PULSE 61; RESP 18; TEMP 36.8; O2SAT 95
--- NOTE | 2022-07-16 08:50 | EXP.DC.SUM ---
General Admission date:: 07/14/22 Discharge date: 07/16/22 HPI HPI HPI: Ms. Alvares is a pleasant 82-year-old female with history of tobacco dependence, chronic back pain, spinal stenosis, and hypertension. She presented to the ER today after falling at home. States she was at home and fell onto her right side. Has had pain in her pelvis since. She denies any chest pain, nausea, vomiting, confusion, hitting her head. Work-up in the ER with labs and imaging. She was found to have significant tenderness over posterior hemipelvis. CT of the pelvis and plain films show concern for pubic ramus fracture. Orthopedics was consulted, recommended nonoperative management. Patient is unable to ambulate in the ER. Medicine consulted for admission, PT/OT eval, and possible placement. On arrival to the floor. Patient is stable on 2 L nasal cannula oxygen (does not wear oxygen at home). States her pelvis hurts when she moves but as long as she still is okay. Has significant family with her who helps supplement history. Patient lives by herself, strong concern about her safety going home. Otherwise at baseline level of health. Has seen pain management previously for back injections, temporary benefit but no long-term improvement. Hospital Course Hospital Course Hospital Course: 82-year-old female with tobacco use disorder, hypertension, spinal stenosis.? Presented after falling at home.? Found to have pubic ramus fracture.? ER consulted medicine for admission.? Patient not safe to discharge home.? Admitted for observation and further evaluation. - Pelvic fracture Patient having pain and able to walk on presentation, this led to her admission. Ortho was consulted. Her fractures are nonoperative in nature. Recommend weightbearing as pain allows. PT and OT evaluated for placement recommendations. As patient lives alone, needs significant help to ambulate, recommend placement for skilled therapy and rehab until improving and her independence. Recommend ambulating with rolling walker for pain modulation and safety. Pain treated with Toradol IV every 6 hours as needed. Will discharge with a few days of Toradol for pain control. Follow-up with orthopedics in the coming weeks for monitoring and reevaluation of healing. -Hypoxia Given patient's extensive smoking history, suspect she has COPD.? Supplemental oxygen as needed, currently 2 L.? Goal saturation greater 90%. Occasional wheeze and rhonchi on exam consistent with typical findings of a patient with COPD/emphysema. Started on once daily long-acting inhaler and nebulizer as needed. Continue breathing treatments as needed. Room air saturation prior to discharge with O2 sat of:85%. X-ray on admission with no concern for pneumonia or focal airspace disease. - Tobacco use disorder: Counseled on smoking cessation, patient not interested. -Hypertension: Present on admission, continue home regimen of losartan/HCTZ Patient referred for placement. Graciously excepted by [facility]. Will discharge for further management, PT, OT, jail. Spent 35 minutes in discharge counseling and direct care with patient. Exam Data for Last 24 hours Vital signs and Labs for Last 24 Hours: Temp Pulse Resp BP Pulse Ox 98.7 F 68 16 128/50 L 95 07/16/22 04:00 07/16/22 07:54 07/16/22 07:54 07/16/22 07:54 07/16/22 08:00 Laboratory Results - last 24 hr 07/16/22 05:57: Sodium 126 L, Potassium 3.5, Chloride 88 L, Carbon Dioxide 37 H, Anion Gap 4.5 L, BUN 29 H, Creatinine 1.20 H, Estimated Creat Clear 42, Estimated GFR 43 L, Est GFR ( Amer) 52 L, Glucose 100, Calcium 8.3 L I & O for Last 24 hours: Intake & Output 07/13/22 07/14/22 07/15/22 07/16/22 23:59 23:59 23:59 23:59 Intake Total 360 / 360 650 / 650 240 / 240 Output Total 0 / 0 500 / 800 500 / 500 Balance 360 / 360 150 / -150 -260 / -260 Weight 74.191 kg 75.38 kg 73.301 kg Constitutional Constitutional
[2022-07-16 09:16] VITALS: O2SAT 85
--- NOTE | 2022-07-16 10:25 | CARE MANAGER ---
Patient's room air saturation is 85% @ rest.
--- NOTE | 2022-07-16 10:36 | PC.NURSE ---
Report called to Juan Jose at [facility]. Awaiting pt's oxygen to be delivered prior to d/c.
--- NOTE | 2022-07-19 14:07 | CARE MANAGER ---
Contacted [facility] and they state patient is doing well. Deny any questions or concerns. EMILIE Esquivel
== END 2022-07-16 11:07 ==
LOC: ER 07:42 → 2ND 10:02
PROVIDERS: Admitting Provider Internal Medicine Adolescent Medicine; Emergency Provider Emergency Medicine; PCP Family Medicine; Visit Provider Internal Medicine Adolescent Medicine
DX: J44.9 Chronic obstructive pulmonary disease, unspecified; F17.210 Nicotine dependence, cigarettes, uncomplicated; I10 Essential (primary) hypertension; S32.511A Fracture of superior rim of right pubis, initial encounter for closed fracture; Z20.822 Contact with and (suspected) exposure to COVID-19; Z66 Do not resuscitate; W01.0XXA Fall on same level from slipping, tripping and stumbling without subsequent striking against object, initial encounter; Y92.018 Other place in single-family (private) house as the place of occurrence of the external cause; M51.17 Intervertebral disc disorders with radiculopathy, lumbosacral region; M48.07 Spinal stenosis, lumbosacral region; K50.90 Crohn's disease, unspecified, without complications
CPT/HCPCS: G0378; 36415; 71045; 72192; 73502; 73552; 80048; 80053; 83735; 85007; 85025; 93005; 94640; 97110; 97116; 97162; 97165; 97530; 99285; C9803; J2405; J3475; U0003; U0005

== ENCOUNTER 2022-08-23 11:34 | Observation (INO) | payer MEDICARE, SELFPAY ==
[2022-08-23] VITALS (20 sets, daily range): BP systolic 93–137; BP diastolic 38–93; PULSE 52–160; RESP 16–22; TEMP 36.6–37; O2SAT 91–100; BMI 27.4; BMI 27.3; BMI 26.4
--- NOTE | 2022-08-23 11:58 | EXP.UTC ---
Discharge Plan Disposition Patient Disposition: Still a Patient Condition: Fair Prescriptions Prescriptions: No Action ketorolac 10 mg tablet 10 mg PO Q6H PRN (Reason: pain) Qty: 60 0RF Rx Instructions: Tolerated IV during admission hydrocodone-acetaminophen 5-325 mg tablet 1 tab PO Q6H Qty: 120 0RF methylprednisolone [Medrol (Julio César)] 4 mg tablets,dose pack See Rx Instructions PO PER PKG DIR Qty: 21 0RF Rx Instructions: PO PER PKG DIR losartan-hydrochlorothiazide 100-25 mg tablet 1 tab PO DAILY tizanidine [Zanaflex] 4 mg tablet 4 mg PO HS acetaminophen 325 mg Tablet 650 mg PO Q4HP PRN (Reason: Fever Or Mild Pain) Qty: 0 0RF ipratropium-albuterol 0.5 mg-3 mg(2.5 mg base)/3 mL Solution For Nebulization 3 ml inhalation Q6HP PRN (Reason: Shortness Of Breath) Qty: 0 0RF ondansetron HCl 4 mg tablet 4 mg PO Q8H PRN (Reason: nausea and vomiting) 5 Days Qty: 0 0RF Spiriva with HandiHaler 18 mcg Capsule, W/Inhalation Device 1 cap inhalation DAILY Qty: 0 0RF Referrals Follow up/Referrals: Isaias Prasad MD [Primary Care Provider] - See instructions Discharge ED Provider: Kiley Forbes [facility] [place] [facility] HPI General Stated complaint: can't urinate Mode of Arrival: Wheelchair Source of Information: Relative Limitations: No Limitations Time Seen by Provider: 08/23/22 11:59 Description of Symptoms (Recalled from Triage Doc. by RN): Family member states the patient fell a couple of weeks ago and broke her pelvis. States that she was in [facility] until last week and now she is unable to urinate. States that when she does urinate it is very little and hurts her really bad. HEENT Symptoms (Recalled from RN notes): No Resp Symptoms (Recalled from RN notes): No Skin Symptoms (Recalled from RN notes): No MS Symptoms (Recalled from RN notes): No Functional Status (Recalled from RN notes): wnl History of Present Illness Provider Complaint: Patient states that she fell about a month ago and broke her pelvis States that she spent a couple days in the hospital and was sent to [facility] States that she was recently discharged from there and since Tuesday she has had low grade fever and has been complaining of abdominal pain and unable to urinate States that she is only able to go a little at times and hurts really bad there and moaning and groining saying she is hurting bad from waist down and holding her stomach Related Data Home Medications Medication Instructions Recorded Confirmed losartan 100 1 tab PO DAILY Hypertension 06/09/22 07/29/22 mg-hydrochlorothiazide 25 mg tablet tizanidine 4 mg tablet (Zanaflex) 4 mg PO HS muscle spasms 06/22/22 07/29/22 Previous Rx's Medication Instructions Recorded acetaminophen 325 mg tablet 650 mg PO Q4HP PRN Fever Or Mild 07/16/22 Pain #0 tabs ipratropium 0.5 mg-albuterol 3 mg 3 ml inhalation Q6HP PRN Shortness 07/16/22 (2.5 mg base)/3 mL nebulization Of Breath #0 mL soln ondansetron HCl 4 mg tablet 4 mg PO Q8H PRN nausea and 07/16/22 vomiting 5 days #0 tabs tiotropium bromide 18 mcg capsule 1 cap inhalation DAILY ##0 07/16/22 with inhalation device (Spiriva with HandiHaler) ketorolac 10 mg tablet 10 mg PO Q6H PRN pain #60 tabs 07/19/22 hydrocodone 5 mg-acetaminophen 325 1 tab PO Q6H pain #120 tabs 07/26/22 mg tablet methylprednisolone 4 mg tablets in See Rx Instructions PO PER PKG DIR 08/17/22 a dose pack (Medrol (Julio César)) #21 tabs Allergies Allergy/AdvReac Type Severity Reaction Status Date / Time Penicillins AdvReac Verified 07/29/22 10:52 Sulfa (Sulfonamide AdvReac Verified 07/29/22 10:52 Antibiotics) Worker's Comp Is this a Worker's Comp case?: No [facility] Disclaimer: The information contained in this section may have been updated after the patient was seen, as this information can be updated by other users. Medical History Deg
--- NOTE | 2022-08-23 12:21 | ECG_ITS ---
APPROVED REPORT Exam: Resting ECG HR:97 bpm ECG Measurements Heart Rate [address] 165 P 61 QRSd 81 QRS 38 QT 326 T 53 QTc 381 Conclusion SINUS RHYTHM WITH OCCASIONAL SUPRAVENTRICULAR PREMATURE COMPLEXES POSSIBLE LEFT ATRIAL ENLARGEMENT [-0.1mV P-WAVE IN V1/V2] MINIMAL ST DEPRESSION [0.025+ mV ST DEPRESSION] BORDERLINE ECG UNCONFIRMED REPORT Electronically signed by : Isaias Akins MD 08/24/2022 20:12:17
--- NOTE | 2022-08-23 12:37 | ECG_ITS ---
APPROVED REPORT Exam: Resting ECG HR:95 bpm ECG Measurements Heart Rate 95 AXES NV 149 P 61 QRSd 82 QRS 46 QT 350 T 48 QTc 402 Conclusion SINUS RHYTHM WITH FREQUENT PACs LEFT ATRIAL abnormality MINIMAL ST DEPRESSION [0.025+ mV ST DEPRESSION] ABNORMAL RHYTHM ECG UNCONFIRMED REPORT Electronically signed by : Isaias Akins MD 08/24/2022 20:12:09
--- NOTE | 2022-08-23 12:43 | PC.NURSE ---
NOTIFIED OF HR AND A-FIB RATE
[2022-08-23 12:50] LABS: Microscopic, Urine URINE MICROSCOPIC (MICROSCOPIC)
[2022-08-23 12:53] LABS: Basophils % 0.3 % (0.1-2.0); Eosinophils # 0.1 K/mm3 (0.0-0.4); Eosinophils % 0.9 % (0.1-12.0); Hematocrit 46.2 % (37.0-47.0); Lymphocytes % 15.7 % (10-50); Mean Corpuscular HGB Conc 32.4 g/dL (31.8-35.4); Mean Corpuscular Hemoglobin 30.9 pg (27.0-31.2); Mean Corpuscular Volume 95.5 fl (81-99); Monocytes # 0.7 K/mm3 (0.1-1.0); Monocytes % 5.5 % (1.7-9.3); Neutrophils # 9.8 K/mm3 (1.8-7.8); Neutrophils % 77.7 % (37.0-80.0); Platelet Count 481 K/mm3 (142-424); Red Blood Count 4.84 M/mm3 (4.20-5.40); Red Cell Distribution Width 15.1 % (11.5-17.5); White Blood Count 12.7 K/mm3 (4.8-10.8)
[2022-08-23 12:55] LABS: Appearance,Urine CLEAR (Clear); Bilirubin,Urine Negative (Negative); Blood, Urine Negative (Negative); Color,Urine YELLOW (Yellow); Glucose,Urine (UA) Negative (Negative); Ketones,Urine Negative (Negative); Leukocyte Esterase,Urine Negative (Negative); Nitrate,Urine Negative (Negative); Protein,Urine Negative (Negative); Specific Gravity, Urine 1.015 (1.005-1.030)
[2022-08-23 12:56] LABS: Chloride 78 mmol/L (98-107); Sodium 125 mmol/L (136-145)
[2022-08-23 12:59] LABS: Alanine Aminotransferase 29 U/L (12-78); Albumin/Globulin Ratio 1.3 (1.1-1.8); Alkaline Phosphatase 266 U/L (38-126); Anion Gap 14.5 mEq/L (5-15); Aspartate Amino Transferase 39 U/L (14-36); Bilirubin,Total 1.8 mg/dl (0.2-1.3); Blood Urea Nitrogen 27 mg/dl (7-17); Carbon Dioxide 35 mmol/L (22.0-30.0); Creatinine Clearance Estimated 45 mL/min (50-200); Estimated Glomerular Filt Rate 48 ml/min (>60); GFR (African American) 58 ML/MIN (>60); Globulin 3.1 g/dL (1.3-3.2); Total Protein,Serum 7.1 g/dl (6.3-8.2)
--- NOTE | 2022-08-23 12:59 | PC.NURSE ---
PT CONTINUES TO HAVE A-FIB AND NSR
[2022-08-23 13:00] LABS: Calcium 8.8 mg/dl (8.4-10.2); Glucose 114 mg/dl (74-100)
--- NOTE | 2022-08-23 13:11 | PC.NURSE ---
ER notified of critical potassium result
[2022-08-23 13:12] LABS: Potassium 2.5 mmoL/L (3.5-5.1)
[2022-08-23 13:28] LABS: Bacteria,Urine 1+ /lpf; RBC,Urine Occasional #/hpf (0-3); WBC,Urine Occasional #/hpf (0-3)
--- NOTE | 2022-08-23 13:30 | PC.NURSE ---
PT ATTENDS CHANGED, NO FURTHER NEEDS VOICED
--- NOTE | 2022-08-23 13:55 | PC.NURSE ---
ED MD AT BEDSIDE TO EVALUATE PT
--- NOTE | 2022-08-23 13:59 | CT_ITS ---
FINAL REPORT TECHNIQUE: After the administration of intravenous contrast, axial images were obtained through the abdomen and pelvis by computed tomography. This study was performed with technique to keep radiation doses as low as reasonably achievable, (ALARA). Individualized dose reduction techniques using automated exposure control or adjustment of the MA and/or KV according to the patient's size were employed. CLINICAL HISTORY: lowe abd pain and distention FINDINGS: Abdomen: The lung bases demonstrate mild bibasilar atelectasis or scarring. The liver is normal in size and attenuation. Patient is status post cholecystectomy. The spleen is unremarkable. The adrenals are normal. The pancreas is unremarkable. There are bilateral renal cysts. Kidneys are otherwise normal. The aorta is normal in caliber. There is no free fluid or adenopathy. Pelvis: The appendix is not identified. The urinary bladder is unremarkable. There is no free fluid or adenopathy. Again seen are fractures involving the lateral aspect of the right superior pubic ramus and mid right inferior pubic ramus. There is also comminuted fracture of the left symphysis pubis. IMPRESSION: Subacute fractures as above. No acute process. Reviewed, Interpreted and Dictated by Kevin Smith III, MD Transcribed by Susana Yo Authenticated and . [facility]
--- NOTE | 2022-08-23 14:22 | PC.NURSE ---
Vicente Anderson with cardiology consulting at bedside
--- NOTE | 2022-08-23 14:23 | PC.NURSE ---
PATIENT SWABBED FOR COVID AND SENT TO LAB
[2022-08-23 14:49] LABS: Lipase 79 U/L (23-300)
[2022-08-23 14:52] LABS: Coronavirus 19, PCR Not Detected (NotDetected); Influenza A, PCR Not Detected (NotDetected); Influenza B, PCR Not Detected (NotDetected)
--- NOTE | 2022-08-23 15:20 | PC.NURSE ---
1520 EXPLAINED JAMI CAPPS, PT STATES SHES IS NOT GOING TO STAY. THE REASON HER HEART RATE IS ELEVATED IS BECAUSE SHE IS PISSED SHE REEDUCATED AND WILL STAY FOR TREATMENT. HR 167 AT THIS TIME
--- NOTE | 2022-08-23 15:25 | PC.NURSE ---
PT REQUESTS BLANCO AT THIS TIME
--- NOTE | 2022-08-23 16:13 | PC.NURSE ---
ed md at bedside to update pt and family
--- NOTE | 2022-08-23 16:19 | PC.NURSE ---
notified care management of admission
--- NOTE | 2022-08-23 16:29 | PC.NURSE ---
CARDIOLOGY AT BEDSIDE
--- NOTE | 2022-08-23 16:30 | ECG_ITS ---
APPROVED REPORT Exam: Resting ECG HR:89 bpm ECG Measurements Heart Rate 89 AXES MT 155 P 74 QRSd 86 QRS 64 QT 357 T 59 QTc 404 Conclusion Atrial bigeminy Bi-atrial abnormality MODERATE ST DEPRESSION [0.05+ mV ST DEPRESSION] ABNORMAL ECG UNCONFIRMED REPORT Electronically signed by : Isaias kAins MD 08/24/2022 20:09:10
--- NOTE | 2022-08-23 16:30 | PC.NURSE ---
ADDITIONAL IV STARTED IN RIGHT WRIST 20
--- NOTE | 2022-08-23 16:32 | HMH.EDGENADL ---
Discharge Plan Disposition Patient Disposition: Admitted Condition: Fair Clinical Impressions Clinical Impression: Atrial fibrillation with RVR, Acute hypokalemia, Acute hyponatremia, Acute dehydration Discharge ED Provider: Laci Nagy General Adult HPI General Chief complaint: Abdominal Pain Stated complaint: can't urinate Time Seen by Provider: 08/23/22 11:59 Mode of Arrival: Wheelchair Limitations: No Limitations Description of Symptoms (Recalled from ER Triage Doc. by RN): PT SENT FROM [facility] FOR ABDOMINAL PAIN THAT STARTED ON TUESDAY. PT WITH RECENT PELVIS FRACTURE, UNKNOWN LAST VOID. 230MLS PER BLADDER SCANNER. History of Present Illness HPI narrative: This is a 2-year-old female who was sent over from the urgent care because lower abdominal pain and incontinence of urine. Patient did have a recent pelvic fracture. No fevers or chills no nausea vomiting. Patient does admit to lower abdominal pain. Related Data Home Medications Medication Instructions Recorded Confirmed losartan 100 1 tab PO DAILY Hypertension 06/09/22 07/29/22 mg-hydrochlorothiazide 25 mg tablet tizanidine 4 mg tablet (Zanaflex) 4 mg PO HS muscle spasms 06/22/22 07/29/22 Previous Rx's Medication Instructions Recorded acetaminophen 325 mg tablet 650 mg PO Q4HP PRN Fever Or Mild 07/16/22 Pain #0 tabs ipratropium 0.5 mg-albuterol 3 mg 3 ml inhalation Q6HP PRN Shortness 07/16/22 (2.5 mg base)/3 mL nebulization Of Breath #0 mL soln ondansetron HCl 4 mg tablet 4 mg PO Q8H PRN nausea and 07/16/22 vomiting 5 days #0 tabs tiotropium bromide 18 mcg capsule 1 cap inhalation DAILY ##0 07/16/22 with inhalation device (Spiriva with HandiHaler) ketorolac 10 mg tablet 10 mg PO Q6H PRN pain #60 tabs 07/19/22 hydrocodone 5 mg-acetaminophen 325 1 tab PO Q6H pain #120 tabs 07/26/22 mg tablet methylprednisolone 4 mg tablets in See Rx Instructions PO PER PKG DIR 08/17/22 a dose pack (Medrol (Julio César)) #21 tabs Allergies Allergy/AdvReac Type Severity Reaction Status Date / Time Penicillins AdvReac Verified 07/29/22 10:52 Sulfa (Sulfonamide AdvReac Verified 07/29/22 10:52 Antibiotics) [facility] Disclaimer: The information contained in this section may have been updated after the patient was seen, as this information can be updated by other users. Medical History Degenerative disc disease HTN (hypertension) Family History Other No significant family history Social History Smoking Status: Never smoker alcohol intake: never current occupational status: retired Travel in the last 8 weeks: None ROS Obtained: Yes All systems reviewed & no additional complaints except as documented Skin no rash or lesions HEENT no runny nose sore throat Pulmonary no cough or shortness of breath Cardiovascular no chest pain pressure heaviness GI see HPI no dysuria pyuria hematuria Musculoskeletal no neck or back pain Endocrine no polydipsia polyuria or polyphasia Psych no SI or HI The rest of the systems were reviewed and found to be negative Physical Exam Narrative Physical exam: Skin: Warm and dry HEENT: Normocephalic atraumatic extract muscles are intact pupils are equal and reactive to light Neck: Supple nontender Lungs: Clear to auscultation Heart: Regular rate and rhythm Abdomen: NABS there is mild suprapubic distention and tenderness to palpation no guarding or rebound Extremities: No clubbing cyanosis or edema Neurologic: No unilateral weakness or numbness Lymphatic: No cervical or inguinal adenopathy Musculoskeletal: No tenderness of the dorsal or lumbar spine Psych: No SI or HI General General appearance: alert and in no apparent distress Respiratory Respiratory exam: Present normal lung sounds bilaterally Cardiovascular Cardiovascular exam: Pres
--- NOTE | 2022-08-23 16:35 | PC.NURSE ---
REPORT GIVEN TO EMILIE KATZ
--- NOTE | 2022-08-23 16:43 | EXP.CARD.CON ---
History of Present Illness History of Present Illness Consult date: 08/23/22 Requesting physician: Laci Nagy Consult reason: atrial fibrillation Chief complaint: A-fib with RVR Additional Medical History:: 1. History of recurrent dehydration 2. History of Crohn's disease A. Status post several feet of small and large intestine removed many years ago 3. Closed fracture of left side of symphysis pubis, 2022 4. Tobacco use A. Greater than [id number] history B. COPD 5. Hypertension 6. History of vulvar malignancy, status post surgical treatment History of present illness: 82-year-old white female brought to urgent treatment for evaluation of lower abdominal pain and decreased urine output. Patient recently had closed fracture of the pubic symphysis for which she did spend 1 week in rehab facility and then went home. Son relates the patient has not been eating and drinking due to discomfort when getting up to go to the bathroom from the recent pelvic fracture. During work-up for possible UTI patient was noted to go into A-fib with RVR. She was started on IV diltiazem and has converted back to sinus rhythm with PACs and PVCs. Patient denies any chest pain, pressure or tightness. She denies any cardiac history. She has a lifelong smoker without history of CVA, diabetes or alcohol use. Cardiology consulted for evaluation and recommendations. Sodium noted to be low at 125 Potassium low at 2.5 Elevated white count at 12.5 EKGs also show sinus rhythm at varying rates with possible left atrial enlargement and nonspecific ST-T abnormalities. Mag level and troponins pending [facility] Disclaimer: The information contained in this section may have been updated after the patient was seen, as this information can be updated by other users. Medical History Degenerative disc disease HTN (hypertension) Family History Other No significant family history Social History Smoking Status: Never smoker alcohol intake: never current occupational status: retired Travel in the last 8 weeks: None Review of Systems Review of Systems Review of systems:: pertinent systems reviewed and negative unless documented below *Cardiovascular Cardiovascular: Denies chest pain, Reports dyspnea on exertion and Reports palpitations *Respiratory Respiratory: Reports dyspnea on exertion *Gastrointestinal Gastrointestinal: Reports abdominal pain *Genitourinary Genitourinary: Reports dysuria Endocrine Endocrine: Reports palpitations Exam Data for Last 24 hours Vital signs and Labs for Last 24 Hours: Temp Pulse Resp BP Pulse Ox 97.8 F 69 22 123/68 94 L 08/23/22 12:34 08/23/22 16:01 08/23/22 16:01 08/23/22 16:01 08/23/22 16:01 Laboratory Results - last 24 hr 08/23/22 12:20: SARS-CoV-2 (PCR) Not detected, Influenza A Untype (PCR) Not detected, Influenza Type B (PCR) Not detected 08/23/22 12:23: Urine Color Yellow, Urine Appearance Clear, Urine pH 7.0, Ur Specific [place] 1.015, Urine Protein Negative, Urine Glucose (UA) Negative, Urine Ketones Negative, Urine Blood Negative, Urine Nitrate Negative, Urine Bilirubin Negative, Urine Urobilinogen 2.0, Ur Leukocyte Esterase Negative, Urine RBC Occasional, Urine WBC Occasional, Ur Squamous Epith Cells 3-5, Urine Bacteria 1+ 08/23/22 12:23: WBC 12.7 H, RBC 4.84, Hgb 15.0, Hct 46.2, MCV 95.5, MCH 30.9, MCHC 32.4, RDW 15.1, Plt Count 481 H, MPV 8.0, Neut % (Auto) 77.7, Lymph % (Auto) 15.7, [place] % (Auto) 5.5, Eos % (Auto) 0.9, Baso % (Auto) 0.3, Neut # (Auto) 9.8 H, Lymph # (Auto) 2.0, [place] # (Auto) 0.7, Eos # (Auto) 0.1, Baso # (Auto) 0.0 08/23/22 12:23: Sodium 125 L, Potassium 2.5 L*, Chloride 78 L, Carbon Dioxide 35 H, Anion Gap 14.5, BUN 27 H, Creatinine 1.10 H, Estimated Creat Clear 45, Estimated GFR 48 L, Est GFR ( Amer)
--- NOTE | 2022-08-23 16:52 | PC.NURSE ---
vasvcular was here for echo
[2022-08-23 17:04] LABS: Magnesium 1.4 mg/dl (1.6-2.3)
[2022-08-23 17:17] LABS: Troponin I 0.01 ng/ml (0.00-0.034)
[2022-08-23 18:41] LABS: Troponin I 0.01 ng/ml (0.00-0.034)
--- NOTE | 2022-08-23 18:45 | EXP.HP ---
History of Present Illness *Admission Date: 08/23/22 *Reason for visit:: acute dehydration *History of present illness: This is a 82yo female with PMHx HTN, COPD, Current smoker, Degenerative disc lumbar disease, who was recently discharge after a closed fracture of the pelvis pubic eliel. Patient was seen at the urgent care earlier c/o unable to void, and lower abdominal. patient was on the setting of home recovery for her recent hip fracture. [facility] referred patient to ER. Upon arrival patient was alert and oriented and c/o abdominal pain. assessment found new onset atrial fibrillation with RVR, HR on 135. patient was admitted for further management. [facility] Disclaimer: The information contained in this section may have been updated after the patient was seen, as this information can be updated by other users. Medical History (Updated 08/23/22 @ 19:16 by Benigno Agosto APRN) Acute Crohn's disease Chronic abdominal pain COPD (chronic obstructive pulmonary disease) Degenerative disc disease HTN (hypertension) Vulva cancer Surgical History (Updated 08/23/22 @ 17:56 by Piero Berry RN) H/O: hysterectomy History of cholecystectomy Family History Other No significant family history Social History (Updated 08/23/22 @ 18:00 by Piero Berry RN) Smoking Status: Current every day smoker alcohol intake: never current occupational status: retired Travel in the last 8 weeks: None Review of Systems Review of Systems Review of systems:: pertinent systems reviewed and negative unless documented below *Cardiovascular Cardiovascular: Reports system reviewed and no additional complaints, except as documented *Respiratory Respiratory: Reports system reviewed and no additional complaints, except as documented *Gastrointestinal Gastrointestinal: Reports system reviewed and no additional complaints, except as documented and Reports abdominal pain *Genitourinary Genitourinary: Reports as per HPI *Musculoskeletal Musculoskeletal: Reports system reviewed and no additional complaints, except as documented *Neurologic Neurologic: Reports system reviewed and no additional complaints, except as documented Meds Home Medications and Allergies Home Medications Medication Instructions Recorded Confirmed Type losartan 100 1 tab PO DAILY Hypertension 06/09/22 08/23/22 History mg-hydrochlorothiazide 25 mg tablet tizanidine 4 mg tablet (Zanaflex) 4 mg PO HS muscle spasms 06/22/22 08/23/22 History acetaminophen 325 mg tablet 650 mg PO Q4HP PRN Fever Or Mild 07/16/22 08/23/22 Rx Pain #0 tabs ipratropium 0.5 mg-albuterol 3 mg 3 ml inhalation Q6HP PRN Shortness 07/16/22 08/23/22 Rx (2.5 mg base)/3 mL nebulization Of Breath #0 mL soln ondansetron HCl 4 mg tablet 4 mg PO Q8H PRN nausea and 07/16/22 08/23/22 Rx vomiting 5 days #0 tabs ketorolac 10 mg tablet 10 mg PO Q6H PRN pain #60 tabs 07/19/22 08/23/22 Rx hydrocodone 5 mg-acetaminophen 325 1 tab PO Q6H pain #120 tabs 07/26/22 08/23/22 Rx mg tablet tiotropium bromide 18 mcg capsule 1 cap inhalation DAILY COPD 08/23/22 08/23/22 History with inhalation device (Spiriva with HandiHaler) New Prescriptions to Start Prescriptions: Allergies Allergy/AdvReac Type Severity Reaction Status Date / Time Penicillins AdvReac Verified 07/29/22 10:52 Sulfa (Sulfonamide AdvReac Verified 07/29/22 10:52 Antibiotics) Exam Data for Last 24 hours Vital signs and Labs for Last 24 Hours: Temp Pulse Resp BP Pulse Ox 97.9 F 135 H 20 118/64 92 L 08/23/22 17:36 08/23/22 17:45 08/23/22 17:36 08/23/22 17:36 08/23/22 17:36 Laboratory Results - last 24 hr 08/23/22 12:20: SARS-CoV-2 (PCR) Not detected, Influenza A Untype (PCR) Not detected, Influenza Type B (PCR) Not detected 08/23/22 12:23: Urine Color Yellow, Urine Appearance Clear, Urine pH 7.0, Ur Specific [place] 1.015,
[2022-08-23 20:25] LABS: Troponin I 0.01 ng/ml (0.00-0.034)
--- NOTE | 2022-08-23 20:44 | ECG_ITS ---
APPROVED REPORT Exam: Resting ECG HR:86 bpm ECG Measurements Heart Rate 86 AXES LA 168 P 72 QRSd 88 QRS 62 QT 392 T 70 QTc 435 Conclusion SINUS RHYTHM WITH FREQUENT SUPRAVENTRICULAR PREMATURE COMPLEXES POSSIBLE LEFT ATRIAL ENLARGEMENT [-0.1mV P-WAVE IN V1/V2] ABNORMAL RHYTHM ECG UNCONFIRMED REPORT Electronically signed by : Isaias Akins MD 08/24/2022 20:07:26
[2022-08-24] VITALS (7 sets, daily range): BP systolic 96–111; BP diastolic 49–62; PULSE 68–90; RESP 16–18; TEMP 36.4–37; O2SAT 92–100; BMI 26.6
--- NOTE | 2022-08-24 05:23 | PC.NURSE ---
Patient given oral cardizem at shift change, converted to NSR, and able to titrate off cardizem drip by 2200 per ROWDY Peres. Patient A&Ox4, slept through most of shift. VSS other than intermittent bradycardia, Ja [employer]NIFE [employer]LA[employer]ER notified of this.
[2022-08-24 06:29] LABS: Basophils % 0.3 % (0.1-2.0); Eosinophils # 0.3 K/mm3 (0.0-0.4); Monocytes # 0.9 K/mm3 (0.1-1.0)
[2022-08-24 06:31] LABS: Chloride 82 mmol/L (98-107)
[2022-08-24 06:32] LABS: Sodium 127 mmol/L (136-145)
[2022-08-24 06:34] LABS: Alanine Aminotransferase 21 U/L (12-78); Alkaline Phosphatase 211 U/L (38-126); Anion Gap 11.9 mEq/L (5-15); Aspartate Amino Transferase 25 U/L (14-36); Bilirubin,Total 1.2 mg/dl (0.2-1.3); Blood Urea Nitrogen 27 mg/dl (7-17); Carbon Dioxide 36 mmol/L (22.0-30.0); Creatinine Clearance Estimated 40 mL/min (50-200); Estimated Glomerular Filt Rate 43 ml/min (>60); GFR (African American) 52 ML/MIN (>60)
[2022-08-24 06:35] LABS: Albumin Level 3.1 g/dl (3.5-5.0); Albumin/Globulin Ratio 1.2 (1.1-1.8); Calcium 8.2 mg/dl (8.4-10.2); Globulin 2.5 g/dL (1.3-3.2); Glucose 101 mg/dl (74-100); Total Protein,Serum 5.6 g/dl (6.3-8.2)
[2022-08-24 06:42] LABS: Eosinophils % 2.8 % (0.1-12.0); Hemoglobin 12.8 g/dL (12.2-16.2); Lymphocytes # 2.3 K/mm3 (0.7-4.5); Lymphocytes % 19.7 % (10-50); Mean Corpuscular HGB Conc 31.2 g/dL (31.8-35.4); Mean Corpuscular Hemoglobin 30.2 pg (27.0-31.2); Mean Corpuscular Volume 96.8 fl (81-99); Mean Platelet Volume 7.9 fl (7.4-10.4); Monocytes % 7.4 % (1.7-9.3); Neutrophils % 69.8 % (37.0-80.0); Platelet Count 348 K/mm3 (142-424); Red Blood Count 4.24 M/mm3 (4.20-5.40); Red Cell Distribution Width 15.3 % (11.5-17.5); White Blood Count 11.5 K/mm3 (4.8-10.8)
[2022-08-24 06:50] LABS: Potassium 2.9 mmoL/L (3.5-5.1)
--- NOTE | 2022-08-24 07:21 | HMH.PHAINT1 ---
Pharmacy Intervention Comments: Home medication list verified through external fill history from outside pharmacy and med list from recent discharge.
--- NOTE | 2022-08-24 09:52 | EXP.CARD.PN ---
Subjective Subjective Date: 08/24/22 Time: 08:30 Principal diagnosis: afib with RVR Interval history: This is an 82-year-old white female who presented to the emergency department with lower abdominal pain and decreased urine output. She recently had a closed fracture of the pubic symphysis for which she did spend a week in rehab. The son reported that she had not been eating and drinking due to discomfort so she did not have to get up to go to the bathroom secondary to her recent pelvic fracture. The patient was found to be in atrial fibrillation with RVR upon arrival to the hospital. She was started on IV diltiazem and did convert back to sinus rhythm. This morning she remains in sinus rhythm. She denies any chest pain or pressure. She denies any shortness of breath or edema. She denies any fever, chills, nausea, vomiting, diarrhea, PND or orthopnea. The patient ruled out for an NH. Exam Data for Last 24 hours Vital signs and Labs for Last 24 Hours: Temp Pulse Resp BP Pulse Ox 98.5 F 76 18 111/62 93 L 08/24/22 08:00 08/24/22 06:00 08/24/22 06:00 08/24/22 06:00 08/24/22 06:00 Laboratory Results - last 24 hr 08/23/22 12:20: SARS-CoV-2 (PCR) Not detected, Influenza A Untype (PCR) Not detected, Influenza Type B (PCR) Not detected 08/23/22 12:23: Urine Color Yellow, Urine Appearance Clear, Urine pH 7.0, Ur Specific [place] 1.015, Urine Protein Negative, Urine Glucose (UA) Negative, Urine Ketones Negative, Urine Blood Negative, Urine Nitrate Negative, Urine Bilirubin Negative, Urine Urobilinogen 2.0, Ur Leukocyte Esterase Negative, Urine RBC Occasional, Urine WBC Occasional, Ur Squamous Epith Cells 3-5, Urine Bacteria 1+ 08/23/22 12:23: WBC 12.7 H, RBC 4.84, Hgb 15.0, Hct 46.2, MCV 95.5, MCH 30.9, MCHC 32.4, RDW 15.1, Plt Count 481 H, MPV 8.0, Neut % (Auto) 77.7, Lymph % (Auto) 15.7, [place] % (Auto) 5.5, Eos % (Auto) 0.9, Baso % (Auto) 0.3, Neut # (Auto) 9.8 H, Lymph # (Auto) 2.0, [place] # (Auto) 0.7, Eos # (Auto) 0.1, Baso # (Auto) 0.0 08/23/22 12:23: Sodium 125 L, Potassium 2.5 L*, Chloride 78 L, Carbon Dioxide 35 H, Anion Gap 14.5, BUN 27 H, Creatinine 1.10 H, Estimated Creat Clear 45, Estimated GFR 48 L, Est GFR ( Amer) 58 L, Glucose 114 H, Calcium 8.8, Total Bilirubin 1.8 H, AST 39 H, ALT 29, Alkaline Phosphatase 266 H, Total Protein 7.1, Albumin 4.0, Globulin 3.1, Albumin/Globulin Ratio 1.3 08/23/22 12:23: Magnesium 1.4 L, Troponin I 0.01 08/23/22 12:27: Lipase 79 08/23/22 17:49: Troponin I 0.01 08/23/22 19:55: Troponin I 0.01 08/24/22 05:36: WBC 11.5 H, RBC 4.24, Hgb 12.8 D, Hct 41.0, MCV 96.8, MCH 30.2, MCHC 31.2 L, RDW 15.3, Plt Count 348 D, MPV 7.9, Neut % (Auto) 69.8, Lymph % (Auto) 19.7, [place] % (Auto) 7.4, Eos % (Auto) 2.8, Baso % (Auto) 0.3, Neut # (Auto) 8.0 H, Lymph # (Auto) 2.3, [place] # (Auto) 0.9, Eos # (Auto) 0.3, Baso # (Auto) 0.0 08/24/22 05:36: Sodium 127 L, Potassium 2.9 L*, Chloride 82 L, Carbon Dioxide 36 H, Anion Gap 11.9, BUN 27 H, Creatinine 1.20 H, Estimated Creat Clear 40, Estimated GFR 43 L, Est GFR ( Amer) 52 L, Glucose 101 H, Calcium 8.2 L, Total Bilirubin 1.2, AST 25 D, ALT 21 D, Alkaline Phosphatase 211 H, Total Protein 5.6 L, Albumin 3.1 L D, Globulin 2.5, Albumin/Globulin Ratio 1.2 08/24/22 05:36: Magnesium 2.0 D I & O for Last 24 hours: Intake & Output 08/21/22 08/22/22 08/23/22 08/24/22 23:59 23:59 23:59 23:59 Intake Total 640 / 640 Output Total 0 / 0 750 / 750 Balance 0 / 0 -110 / -110 Weight 153 lb 14.4 oz 156 lb 3 oz Constitutional Constitutional: no acute distress and average body habitus *Routine HEENT Exam Head: Present normocephalic and atraumatic ENT: Present mucous membranes moist *Routine Neck Exam Neck: Present supple, full ROM and normal carotid upstroke; Absent JVD, carotid bruit or lymphadenopathy *Routine Respiratory Exam Respiratory: Present CTA bilaterally, normal respiratory effort, able to speak in complete sentences and symmetric chest movement *
--- NOTE | 2022-08-24 10:00 | HMH.OTEV ---
OT Inpatient Evaluation Rehab OT IP Evaluation Start: 08/23/22 19:18 Freq: ONCE Status: Active Protocol: Document 08/24/22 09:54 [facility] (Rec: 08/24/22 10:00 [facility] [id number]) Rehab OT IP Assessment Subjective History Pt oriented x 4 on arrival. Pt agreeable to engage in therapy evaluation. Pt is a 82yo female with PMHx HTN, COPD, Current smoker, Degenerative disc lumbar disease, who was recently discharge after a closed fracture of the pelvis pubic eliel. Pt admitted on 08/23/22 due to atrial fibrillation with RVR and acute dehydration . Prior to being in the hosptial, pt lived at home alone. Pt claims she is independent with ADLs such as dressing, bathing, and feeding . Pt also claims she is independent with IADLs such as cleaning, cooking, and laundry. Family assists with grocery shopping. Pt uses a rolling walker during functional mobiltiy tasks. Subjective I can normally do whatever I need to. Objective Patient Orientation Person,Place,Birthday Upper Extremity Gross ROM WFL Bed Mobility bed mobility-scooting,bed mobility - supine/sit,bed mobility - rolling Assist Level Supervision/Stand by Transfer Training Sit/Stand Transfer Assist Level Contact Guard/Hand Hold Chair Transfer Ability Contact Guard/Hand Hold Chair Transfer Technique Sit to/from Ambulatory Chair Transfer Assistive Devices Rolling Walker Rehab OT IP prob,goals,plan Problems Date of Evaluation: 08/24/22 OT IP Problems Bed Mobility,Transfers,Balance ,Self care,Safety Rehab Potential Rehab Potential Good Equipment Needs Assistive Devices Rolling / Wheeled Walker Plan OT intervention Plan Bed Mobility,Transfers,Balance ,Self care,Safety,Therapeutic Exercise OT Plan Frequency BID Discharge Goals Bed Mobility Ability Standby Assistance Sit t
--- NOTE | 2022-08-24 10:09 | EXP.DC.SUM ---
General Admission date:: 08/23/22 Discharge date: 08/24/22 HPI HPI HPI: This is a 82yo female with PMHx HTN, COPD, Current smoker, Degenerative disc lumbar disease, who was recently discharge after a closed fracture of the pelvis pubic eliel. Patient was seen at the urgent care earlier c/o unable to void, and lower abdominal. patient was on the setting of home recovery for her recent hip fracture. [facility] referred patient to ER. Upon arrival patient was alert and oriented and c/o abdominal pain. assessment found new onset atrial fibrillation with RVR, HR on 135. patient was admitted for further management. Hospital Course Hospital Course Hospital Course: Ms. Alvares is a pleasant 82-year-old female with extensive smoking history who came to the ER on 08/23 after being transferred from the [facility] due to new onset A-fib. In the ER found to have A-fib with RVR and electrolyte abnormality secondary to dehydration. Of note recently had a pelvic fracture 6 weeks ago for which she had a short stay in rehab and has been back home for the past several weeks. Has not been very active at home, poor p.o. intake, pain with ambulation. Management for her pelvic fracture has been nonsurgical. Labs on presentation as follows: CBC 12.7, Plt 481,000. Na 125 K 2.5 chloride 78 bicarb 35 BUN 27 creatinine 1.1,? glucose 114 Urinalysis was negative for UTI. Cardiac monitoring is positive for new onset A-fib with RVR. Cardiology was consulted and patient was placed on a Cardizem drip. Transitioned to oral Cardizem with good control of her heart rate. Heart rate appears in sinus rhythm by following morning. Infusion was stopped and patient transition to oral anticoagulation with Xarelto. Plan to continue diltiazem 180 mg extended release once daily for rate control and Xarelto 15 mg daily for anticoagulation in the setting of chronic kidney disease. Patient's electrolytes found to have abnormalities with magnesium and potassium. Magnesium corrected during admission. Potassium still low at time of discharge. Tolerating oral repletion. Discharged home with 10 days of repletion. Plan for labs in the coming days. Echo obtained. Preliminary reading with preserved EF. Formal read still pending at discharge. Plan to follow-up with cardiology in the next 1 to 2 weeks. Stable for discharge home. New meds at discharge: Potassium PO BID for 10 days Xarelto 15mg PO daily for afib anticoagulation Diltiazem 180mg ER daily for afib stable for DC home with Home health. Needs labs in 3 days to monitor renal function and potassium levels. Exam Data for Last 24 hours Vital signs and Labs for Last 24 Hours: Temp Pulse Resp BP Pulse Ox 98.5 F 76 18 111/62 93 L 08/24/22 08:00 08/24/22 06:00 08/24/22 06:00 08/24/22 06:00 08/24/22 06:00 Laboratory Results - last 24 hr 08/23/22 12:20: SARS-CoV-2 (PCR) Not detected, Influenza A Untype (PCR) Not detected, Influenza Type B (PCR) Not detected 08/23/22 12:23: Urine Color Yellow, Urine Appearance Clear, Urine pH 7.0, Ur Specific [place] 1.015, Urine Protein Negative, Urine Glucose (UA) Negative, Urine Ketones Negative, Urine Blood Negative, Urine Nitrate Negative, Urine Bilirubin Negative, Urine Urobilinogen 2.0, Ur Leukocyte Esterase Negative, Urine RBC Occasional, Urine WBC Occasional, Ur Squamous Epith Cells 3-5, Urine Bacteria 1+ 08/23/22 12:23: WBC 12.7 H, RBC 4.84, Hgb 15.0, Hct 46.2, MCV 95.5, MCH 30.9, MCHC 32.4, RDW 15.1, Plt Count 481 H, MPV 8.0, Neut % (Auto) 77.7, Lymph % (Auto) 15.7, [place] % (Auto) 5.5, Eos % (Auto) 0.9, Baso % (Auto) 0.3, Neut # (Auto) 9.8 H, Lymph # (Auto) 2.0, [place] # (Auto) 0.7, Eos # (Auto) 0.1, Baso # (Auto) 0.0 08/23/22 12:23: Sodium 125 L, Potassium 2.5 L*, Chloride 78 L, Carbon Dioxide 35 H, Anion Gap 14.5, BUN 27 H, Creatinine 1.10 H, Estimated Creat Clear 45, Estimated GFR 48 L, Est GFR ( Amer) 58 L, Glucose 114 H, Calcium 8.8, Total Bilirubin 1.8 H, AST 39 H, ALT 29, Alkaline
--- NOTE | 2022-08-24 10:47 | HMH.PTEV ---
Physical Therapy Evaluation Rehab PT IP Evaluation Start: 08/23/22 19:18 Freq: ONCE Status: Active Protocol: Document 08/24/22 10:00 PHORNE (Rec: 08/24/22 10:47 [facility]ORNE [id number]) Subjective/History History History 82 yowf adm to [facility] due to a- fib with RVR, hyperkalemia, hyponatremia. She has a hx of HTN, COPD, DDD, and recent R sup/inf pubic rami fxs with L symphysis pubis fx. She reports she lives alone, 1 step to enter the home, and she has been using a RW for ambulation since her pubic fxs . Subjective Subjective Pt reports pain in post L hip this am, but not more than usual. She agrees to mobility assessment. Rehab PT IP Eval Objective Appearance Patient Behavior Appropriate Patient Orientation Person,Place,Time Difficulty following instructions none Speech Pattern Clear Ambulation Patient Able to Ambulate Yes Ambulation Observation IP General Gait Pattern Observation Wide Based Gait Ambulation Distance (feet) 10 Ambulation Assistive Device Rolling Walker Ambulation Ability Supervision/Stand by Balance Ability to Arise Able, uses arms to help Sitting Balance Steady, safe Standing Balance Steady, wide stance Dynamic Sitting Balance Ability Good Dynamic Standing Balance Ability Good Transfers Bed Transfer Ability Supervision/Stand by Chair Transfer Ability Supervision/Stand by Sit to Stand Bed Transfer Ability Supervision/Stand by Sit to Stand Chair Transfer Ability Supervision/Stand by ROM All Extremities PT ROM Status WFL MMT All Extremities PT MMT WFL Rehab PT IP prob,goals,plan Problems Date of Evaluation: 08/24/22 PT IP Problems Bed Mobility,Transfers,Gait Rehab Potential Rehab Potential Good Plan PT Intervention Plan Bed Mobility,Transfers,Gait, Therapeutic Exercise PT Plan Frequency Daily Duration LOS Discharge Goals Bed Transfer Ability Independent Sit to Stand Chair Transfer Ability Independent Ambulation Assistive Device Rolling Walker Ambulation Distance (feet) 20 Discharge Plan PT Discharge Plan Pt is currently appropriate to return home once medically
--- NOTE | 2022-08-24 11:11 | SW/DCPLANNER ---
PT/OT evaluated patient and recommended returning home with home health services. I spoke with patient and her son this morning. Patient recently discharged home w/ home health services through [facility]. The plan for this patient is to discharge home today and I will update Jihan w/ Virginie regarding discharge.
--- NOTE | 2022-08-24 11:47 | HMH.PHAINT1 ---
Pharmacy Intervention Comments: Discharge medication counseling completed. Patient was starting the following new meds: -diltiazem: 180 mg once daily ~6pm, told of possible side effects of edema and/or dizziness. Said to take the dose in the evening -potassium: 20 mEq twice daily, said most common side effect was stomach upset and other GI symptoms and to take with food to try to prevent this -Xarelto: 15 mg with evening meal, told to watch fro signs of bleeding (easily bruising, blood in stool) and let her provider know if this occurred Patient was told to stop taking the following meds: -ketorolac: prescribed to her prn for pain after previous discharge in July -losartan/HCTZ: patient was concerned when I told her to stop taking this. I explained that the diltiazem she was starting was also for blood pressure and would help with her heart rhythm and that taking both meds could cause her blood pressure to drop too low. Patient was hard of hearing so much of this information had to be repeated, but she verbalized understanding and had no further questions.
--- NOTE | 2022-08-25 14:15 | CARE MANAGER ---
Contacted patient related to hospital discharge. She states she doesn't feel well today and is having pain. She is not taking anything for pain. Reviewed follow up appointments and suggested if pain continues to follow up with Dr. Prasad soonmary. She has not heard from home health yet. She will let us know if they do not call. She did scrap picker her prescriptions. She denies any other questions or concerns. EMILIE Esquivel
== END 2022-08-24 15:07 | disposition home health service (06) ==
LOC: UTC 11:39 → ER 12:05 → 2ND 16:36
PROVIDERS: Nurse Practitioner Family; Physician Assistant; Admitting Provider Internal Medicine Adolescent Medicine; Emergency Provider Emergency Medicine; PCP Family Medicine; Visit Provider Internal Medicine Adolescent Medicine
DX: I48.91 Unspecified atrial fibrillation (principal); E87.6 Hypokalemia; E87.1 Hypo-osmolality and hyponatremia; E86.0 Dehydration; M51.36 Other intervertebral disc degeneration, lumbar region; N18.31 Chronic kidney disease, stage 3a; F17.210 Nicotine dependence, cigarettes, uncomplicated; S32.592A Other specified fracture of left pubis, initial encounter for closed fracture; J44.9 Chronic obstructive pulmonary disease, unspecified; Z79.899 Other long term (current) drug therapy; I12.9 Hypertensive chronic kidney disease with stage 1 through stage 4 chronic kidney disease, or unspecified chronic kidney disease
CPT/HCPCS: G0378; 36415; 74177; 80053; 81001; 83690; 83735; 84484; 85025; 87086; 87088; 87186; 87636; 93005; 93306; 94640; 97163; 97166; 99285; C9803; J0696; J3475; Q9967; U0003; U0005

== ENCOUNTER → 2022-09-07 12:52 | Outpatient (CLI) | payer MEDICARE, SELFPAY ==
--- NOTE | 2022-09-07 13:00 | XR_ITS ---
FINAL REPORT CLINICAL HISTORY: Pelvis pain COMPARISON: 07/14/2022 FINDINGS: Pelvis Three views were obtained. There are mild degenerative changes of both hips. There are moderate degenerative changes of the lumbar spine. There are fractures of the bilateral sacrum and bilateral superior and inferior pubic rami, appear subacute. Vascular calcification is identified. IMPRESSION: Fractures as above. Reviewed, Interpreted and Dictated by Kevin Smith III, MD Transcribed by Myah Koo Authenticated and [facility]
== END ==
PROVIDERS: PCP Family Medicine; Visit Provider Orthopaedic Surgery
DX: R10.2 Pelvic and perineal pain; S32.592S Other specified fracture of left pubis, sequela
CPT/HCPCS: 72190

== ENCOUNTER 2023-01-26 08:14 | Outpatient (CLI) | payer MEDICARE, SELFPAY ==
[2023-01-26] VITALS (7 sets, daily range): BP systolic 92–138; BP diastolic 46–76; PULSE 58–85; RESP 16–18; TEMP 36.2–36.3; O2SAT 92–98; BMI 24.9
--- NOTE | 2023-01-26 08:15 | CT_ITS ---
APPROVED REPORT Trust And Estates Attorney: CLINICAL INDICATION Chest Pain TECHNIQUE Image Acquisition: A 128 slice MDCT scanner (Jooixa View) was used for data acquisition. A noncontrast coronary calcium scan was performed. A CT attenuation threshold of 130 Hounsfield units (HU) was used for the detection of calcium in contiguous voxels of 1 sq mm in area to be counted as individual lesions. Bolus tracking in the ascending aorta with a threshold of 180 HU was performed. Immediately afterwards, ECG synchronized cardiac CT was then performed from the cardiac base to apex using retrospective gating with ECG tube current modulation. A total of 85 mL of Isovue 370 mg/mL contrast medium was administered at 5 mL/sec followed by a saline flush using a biphasic injection protocol. A tube voltage of 120 KVp was used. The patient received the following medications prior to the cardiac CT. 100 mg of oral metoprolol 0.8 mg of sublingual nitroglycerin The average heart rate at the time of acquisition was 48 bpm and regular. Image Reconstruction Transaxial images were reconstructed at 0.67 mm slide thickness. Data was reviewed interactively on an advanced workstation capable of 2 and 3-dimensional displays in all conventional reconstruction formats, including multiplanar reformations, maximum intensity projections, curved multiplanar reformations, and volume rendered reconstructions. When applicable, selected routine images describing the relevant coronary anatomy and pathology were saved and sent to PACS. Complications None Technical Quality Overall image quality was good. Coronary artery opacification was adequate. Total DLP (Dose-Length Product) is 1760.2 mGy-cm. The reported value represents the total of one or more individual components during the CT acquisition of this date and at this time, and as such, the same value may appear in more than one CT report depending on the interpreting/reporting physicians. COMPARISON None FINDINGS CT Coronary Calcium Scoring LMA (Left Main Artery) = 39 LAD (Left Anterior Descending) = 34 LCX (Left Coronary Circumflex) = 0 RCA (Right Coronary Artery) = 53 Total Calcium Score = 126 using the AJ-130 method. The observed calcium score of 126 is at 48th percentile for subjects of the same age, sex, and race/ethnicity. The interpretation of the calcium heart score is based on the following continuum*: 0 = no calcified plaque detected (risk of coronary artery disease is very low ??? less than 5%) 1-10 = calcium detected in extremely minimal levels (risk of coronary diseases is still low ??? less than 10%) 11-100 = mild levels of plaque detected with certainty (mild or minimal narrowing of heart arteries is likely) 101-400 = definite,at least moderate levels of plaque detected (relatively high risk of a heart attack within 3-5 years) >401-999 = extensive levels of plaque detected (high risk of heart attack, high levels of vascular disease are present, high likelihood of at least one significant coronary narrowing) *The calcium heart score quantifies the burden of coronary calcification/plaque in the coronary arteries. The calcium heart score is not able to evaluate the presence or burden of non-calcified (i.e. soft) plaque. There is identifiable calcification in the ascending aorta, descending aorta, and aortic valve, but not the mitral annulus or mitral valve, pericardium, or myocardium. Coronary CT Angiography Coronaries have normal origin and proximal course. The coronary arterial system is right dominant. Note: Stenosis is reported as maximum percentage diameter stenosis. Quantitative Stenosis Grading: Left Main (LM): The left main originates normally from the left sinus of Valsalva. The LM bi
[2023-01-26 09:22] LABS: Anion Gap 12.7 mEq/L (5-15); Blood Urea Nitrogen 11 mg/dl (7-17); Calcium 9.1 mg/dl (8.4-10.2); Carbon Dioxide 31 mmol/L (22.0-30.0); Chloride 92 mmol/L (98-107); Creatinine Clearance Estimated 45 mL/min (50-200); Estimated Glomerular Filt Rate 53 ml/min (>60); GFR (African American) 64 ML/MIN (>60); Glucose 100 mg/dl (74-100); Potassium 3.7 mmoL/L (3.5-5.1); Sodium 132 mmol/L (136-145)
== END 2023-01-26 10:49 | disposition home or self-care (01) ==
PROVIDERS: PCP Family Medicine; Visit Provider Physician Assistant
DX: F17.200 Nicotine dependence, unspecified, uncomplicated (principal); I10 Essential (primary) hypertension; J44.9 Chronic obstructive pulmonary disease, unspecified; N18.9 Chronic kidney disease, unspecified; R07.9 Chest pain, unspecified; I48.0 Paroxysmal atrial fibrillation; I25.84 Coronary atherosclerosis due to calcified coronary lesion
CPT/HCPCS: 75571; 75574; 80048; Q9967

== ENCOUNTER 2023-07-26 09:48 | Outpatient (POV) | payer MEDICARE, SELFPAY | END 2023-07-26 23:59 | disposition home or self-care (01) | LOC: SC 09:49 | PROVIDERS: Visit Provider Specialist/Technologist | DX: Z00.00 Encounter for general adult medical examination without abnormal findings (principal) ==